=== PATIENT | male | born 1980 | race Hispanic/Latino ===

== ENCOUNTER 2017-08-23 12:49 | Emergency (ER) | payer SELFPAY ==
[2017-08-23] MEDS ORDERED: MECLIZINE HCL 25 MG TABLET ONE (13:31)
[2017-08-23] MEDS ORDERED: HYOSCYAMINE SULFATE 0.125 MG TAB.SUBL SL ONE (13:32)
[2017-08-23] MEDS ORDERED: ONDANSETRON ODT 4 MG TAB ONE (13:32)
== END 2017-08-23 14:50 | disposition home or self-care (01) ==
LOC: EDH 12:49
DX: R19.7 Diarrhea, unspecified (principal); R11.2 Nausea with vomiting, unspecified; R42 Dizziness and giddiness; Z72.0 Tobacco use; Z91.018 Allergy to other foods

== ENCOUNTER 2017-12-20 02:38 | Emergency (ER) | payer SELFPAY ==
[2017-12-20] MEDS ORDERED: IBUPROFEN 200 MG TAB ONE (02:47)
[2017-12-20] MEDS ORDERED: IBUPROFEN 400 MG TABLET ONE (02:47)
== END 2017-12-20 03:19 | disposition home or self-care (01) ==
LOC: EDH 02:38
DX: S93.402A Sprain of unspecified ligament of left ankle, initial encounter (principal); Z91.018 Allergy to other foods; Z72.0 Tobacco use; X58.XXXA Exposure to other specified factors, initial encounter; Y93.02 Activity, running; Y92.89 Other specified places as the place of occurrence of the external cause; Y99.8 Other external cause status
CPT/HCPCS: 73610

== ENCOUNTER 2017-12-20 17:00 | Emergency (ER) | payer SELFPAY ==
[2017-12-20 17:50] LABS: BASOPHILS % (AUTO) 0.5 % (0.0-5.0); EOSINOPHILS % (AUTO) 0.5 % (0.0-8.0); HEMATOCRIT 42.4 % (42-54); LYMPHOCYTES % (AUTO) 14.6 % (21.0-51.0); MEAN CORPUSCULAR HEMOGLOBIN 30.1 pg (27.0-33.0); MEAN CORPUSCULAR HGB CONC 34.2 g/dL (32.0-36.0); MONOCYTES % (AUTO) 7.1 % (3.0-13.0); NEUTROPHILS % (AUTO) 77.3 % (40.0-77.0); PLATELET COUNT (AUTO) 258 K/uL (130-400); RED BLOOD CELL COUNT(AUTO) 4.82 MIL/uL (4.50-6.20); RED CELL DISTRIBUTION WIDTH 13.3 % (11.0-15.5)
[2017-12-20 17:59] LABS: CREATININE 0.9 mg/dL (0.5-1.5); POTASSIUM 3.8 mmol/L (3.5-5.1)
[2017-12-20 18:01] LABS: INR 0.92 (0.85-1.15); PARTIAL THROMBOPLASTIN TIME 25.7 SEC (26.3-35.5); PROTHROMBIN TIME 9.7 SEC (9.6-11.6)
[2017-12-20 18:05] LABS: AMPHET/METH SCREEN,URINE NEGATIVE (NEGATIVE); BARBITURATE SCREEN, URINE NEGATIVE (NEGATIVE); BENZODIAZEPINES SCREEN,URINE NEGATIVE (NEGATIVE); CANNABINOID SCREEN,URINE NEGATIVE (NEGATIVE); COCAINE SCREEN,URINE POSITIVE (NEGATIVE); OPIATE SCREEN,URINE NEGATIVE (NEGATIVE); PHENCYCLIDINE SCREEN,URINE NEGATIVE (NEGATIVE)
[2017-12-20 18:14] LABS: ALBUMIN 3.9 g/dL (3.5-5.0); BILIRUBIN,TOTAL 1.3 mg/dL (0.2-1.0); CREATINE KINASE MB 2.3 ng/mL (0.5-3.6); TOTAL PROTEIN, SERUM 7.6 g/dL (6.0-8.3)
[2017-12-20] MEDS ORDERED: PANTOPRAZOLE SODIUM 40 MG TABLET.DR PO ONE (19:22)
== END 2017-12-20 19:29 | disposition home or self-care (01) ==
LOC: EDH 17:00
DX: K92.0 Hematemesis (principal); I10 Essential (primary) hypertension; K74.69 Other cirrhosis of liver; Z72.0 Tobacco use; Z91.018 Allergy to other foods
CPT/HCPCS: 36415; 80053; 80305; 82270; 82550; 82553; 84484; 85025; 85610; 85730; 93005

== ENCOUNTER 2018-11-28 15:37 | Emergency (ER) | payer OTHER ==
[2018-11-28 16:17] LABS: BASOPHILS % (AUTO) 0.4 % (0.0-5.0); EOSINOPHILS % (AUTO) 0.7 % (0.0-8.0); HEMATOCRIT 43.3 % (42-54); LYMPHOCYTES % (AUTO) 11.2 % (21.0-51.0); MEAN CORPUSCULAR HEMOGLOBIN 30.7 pg (27.0-33.0); MEAN CORPUSCULAR HGB CONC 34.5 g/dL (32.0-36.0); MONOCYTES % (AUTO) 6.1 % (3.0-13.0); NEUTROPHILS % (AUTO) 81.6 % (40.0-77.0); PLATELET COUNT (AUTO) 245 K/uL (130-400); RED BLOOD CELL COUNT(AUTO) 4.86 MIL/uL (4.50-6.20); RED CELL DISTRIBUTION WIDTH 14.3 % (11.0-15.5)
[2018-11-28 16:27] LABS: CREATININE 0.9 mg/dL (0.5-1.5); POTASSIUM 3.9 mmol/L (3.5-5.1)
[2018-11-28 16:30] LABS: INR 0.92 (0.85-1.15); PROTHROMBIN TIME 9.7 SEC (9.6-11.6)
[2018-11-28 16:32] LABS: ALBUMIN 4.1 g/dL (3.5-5.0); BILIRUBIN,TOTAL 0.8 mg/dL (0.2-1.0); TOTAL PROTEIN, SERUM 7.9 g/dL (6.0-8.3)
== END 2018-11-28 16:44 ==
LOC: EDH 15:37
DX: R42 Dizziness and giddiness (principal); R11.2 Nausea with vomiting, unspecified; F41.9 Anxiety disorder, unspecified; K74.60 Unspecified cirrhosis of liver; Z91.018 Allergy to other foods
CPT/HCPCS: 36415; 71045; 80053; 84484; 85025; 85610; 85730; 93005

== ENCOUNTER 2019-04-01 15:55 | Emergency (ER) | payer OTHER ==
[2019-04-01] MEDS ORDERED: NA BORATE/BORIC AC/H2O/NACL 120 ML OPHTH IRRIG SOLN ONE (16:27)
[2019-04-01] MEDS ORDERED: TETRACAINE HCL 0.5% 4 ML OPHTH SOLN ONE (16:27)
[2019-04-01] MEDS ORDERED: FLUORESCEIN SODIUM 1 STRIP STRIP ONE (16:27)
[2019-04-01] MEDS ORDERED: TETANUS/DIPHTHERIA TOXOID [ADULT] 0.5 ML VIAL IM ONE (16:28)
[2019-04-01] MEDS ORDERED: SODIUM CHLORIDE 0.9% 1000ML 1,000 ML IV ONE (17:53)
[2019-04-01] MEDS ORDERED: THIAMINE HCL 100 MG/ML 2ML VIAL ONE (17:54)
[2019-04-01 17:57] LABS: BASOPHILS % (AUTO) 0.9 % (0.0-5.0); EOSINOPHILS % (AUTO) 1.3 % (0.0-8.0); HEMATOCRIT 45.2 % (42-54); LYMPHOCYTES % (AUTO) 33.9 % (21.0-51.0); MEAN CORPUSCULAR HEMOGLOBIN 31.1 pg (27.0-33.0); MEAN CORPUSCULAR HGB CONC 35.2 g/dL (32.0-36.0); MEAN CORPUSCULAR VOLUME 88.4 fL (79-99); MONOCYTES % (AUTO) 9.1 % (3.0-13.0); NEUTROPHILS % (AUTO) 54.8 % (40.0-77.0); NUCLEATED RED BLOOD CELLS 0.1 % (0.0-0.19); PLATELET COUNT (AUTO) 319 K/uL (130-400); RED BLOOD CELL COUNT(AUTO) 5.11 MIL/uL (4.50-6.20); RED CELL DISTRIBUTION WIDTH 14.5 % (11.0-15.5); WHITE BLOOD COUNT (AUTO) 6.6 K/uL (4.8-10.8)
[2019-04-01 17:58] LABS: APPEARANCE,URINE Clear (CLEAR); BILIRUBIN,URINE Negative (NEGATIVE); COLOR,URINE Yellow (YELLOW); GLUCOSE, URINE (UA) Negative (NEGATIVE); KETONES,URINE Negative (NEGATIVE); LEUKOCYTE ESTERASE ,URINE Negative (NEGATIVE); NITRATE,URINE Negative (NEGATIVE); OCCULT BLOOD,URINE Negative (NEGATIVE); PH,URINE 5.5 (5.0-8.0); PROTEIN,URINE Negative (NEGATIVE); UROBILINOGEN,URINE 0.2 mg/dL (0.2-1.0)
[2019-04-01 18:05] LABS: AMPHET/METH SCREEN,URINE NEGATIVE (NEGATIVE); BARBITURATE SCREEN, URINE NEGATIVE (NEGATIVE); BENZODIAZEPINES SCREEN,URINE NEGATIVE (NEGATIVE); CANNABINOID SCREEN,URINE NEGATIVE (NEGATIVE); COCAINE SCREEN,URINE POSITIVE (NEGATIVE); OPIATE SCREEN,URINE NEGATIVE (NEGATIVE); PHENCYCLIDINE SCREEN,URINE NEGATIVE (NEGATIVE)
[2019-04-01 18:12] LABS: INR 0.87 (0.85-1.15); PROTHROMBIN TIME 9.2 SEC (9.6-11.6)
[2019-04-01 18:19] LABS: CREATININE 0.9 mg/dL (0.5-1.5); POTASSIUM 4.4 mmol/L (3.5-5.1)
[2019-04-01 18:26] LABS: BILIRUBIN,TOTAL 0.5 mg/dL (0.2-1.0); TOTAL PROTEIN, SERUM 8.3 g/dL (6.0-8.3)
== END 2019-04-01 19:18 | disposition left against medical advice (07) ==
LOC: EDH 15:55
DX: S02.2XXA Fracture of nasal bones, initial encounter for closed fracture (principal); T15.91XA Foreign body on external eye, part unspecified, right eye, initial encounter; F10.129 Alcohol abuse with intoxication, unspecified; F41.9 Anxiety disorder, unspecified; F31.9 Bipolar disorder, unspecified; K74.60 Unspecified cirrhosis of liver; Z88.6 Allergy status to analgesic agent; W22.8XXA Striking against or struck by other objects, initial encounter; Y93.89 Activity, other specified; Y92.89 Other specified places as the place of occurrence of the external cause; Y99.8 Other external cause status; Y90.9 Presence of alcohol in blood, level not specified
CPT/HCPCS: 36415; 70450; 70486; 80053; 80305; 81003; 82140; 85025; 85610; 85730; 90471; 90714; 96372; 99285; G0480; J3411; J7030

== ENCOUNTER 2019-08-03 02:15 | Emergency (ER) | payer OTHER ==
[2019-08-03] MEDS ORDERED: ONDANSETRON HCL 4 MG/2 ML VIAL ONE (02:50)
[2019-08-03] MEDS ORDERED: FAMOTIDINE/PF 20 MG/2 ML VIAL IV ONE (02:50)
[2019-08-03] MEDS ORDERED: METOCLOPRAMIDE 10 MG/2 ML VIAL ONE (02:50)
[2019-08-03 02:58] LABS: BASOPHILS % (AUTO) 0.5 % (0.0-5.0); EOSINOPHILS % (AUTO) 1.8 % (0.0-8.0); HEMATOCRIT 40.2 % (42-54); LYMPHOCYTES % (AUTO) 22.4 % (21.0-51.0); MEAN CORPUSCULAR HEMOGLOBIN 29.1 pg (27.0-33.0); MEAN CORPUSCULAR HGB CONC 34.6 g/dL (32.0-36.0); MEAN CORPUSCULAR VOLUME 84.3 fL (79-99); MONOCYTES % (AUTO) 8.5 % (3.0-13.0); NEUTROPHILS % (AUTO) 65.2 % (40.0-77.0); PLATELET COUNT (AUTO) 399 K/uL (130-400); RED BLOOD CELL COUNT(AUTO) 4.77 MIL/uL (4.50-6.20); RED CELL DISTRIBUTION WIDTH 12.3 % (11.0-15.5); WHITE BLOOD COUNT (AUTO) 8.8 K/uL (4.8-10.8)
[2019-08-03 02:59] LABS: APPEARANCE,URINE Clear (CLEAR); BILIRUBIN,URINE Negative (NEGATIVE); COLOR,URINE Yellow (YELLOW); GLUCOSE, URINE (UA) Negative (NEGATIVE); KETONES,URINE Negative (NEGATIVE); LEUKOCYTE ESTERASE ,URINE Negative (NEGATIVE); NITRATE,URINE Negative (NEGATIVE); OCCULT BLOOD,URINE Negative (NEGATIVE); PROTEIN,URINE Negative (NEGATIVE); UROBILINOGEN,URINE 0.2 mg/dL (0.2-1.0)
[2019-08-03 03:08] LABS: CREATININE 0.9 mg/dL (0.5-1.5); POTASSIUM 3.5 mmol/L (3.5-5.1)
[2019-08-03 03:12] LABS: ALBUMIN 3.5 g/dL (3.5-5.0); BILIRUBIN,TOTAL 0.2 mg/dL (0.2-1.0); TOTAL PROTEIN, SERUM 8.3 g/dL (6.0-8.3)
[2019-08-03 03:25] LABS: B-TYPE NATRIURETIC PEPTIDE 22 pg/mL (0-100)
[2019-08-03 03:31] LABS: INR 0.9 (0.85-1.15); PARTIAL THROMBOPLASTIN TIME 27.4 SEC (26.3-35.5); PROTHROMBIN TIME 9.5 SEC (9.6-11.6)
[2019-08-03 03:35] LABS: AMPHET/METH SCREEN,URINE NEGATIVE (NEGATIVE); BARBITURATE SCREEN, URINE NEGATIVE (NEGATIVE); BENZODIAZEPINES SCREEN,URINE NEGATIVE (NEGATIVE); CANNABINOID SCREEN,URINE NEGATIVE (NEGATIVE); COCAINE SCREEN,URINE NEGATIVE (NEGATIVE); OPIATE SCREEN,URINE NEGATIVE (NEGATIVE); PHENCYCLIDINE SCREEN,URINE NEGATIVE (NEGATIVE)
== END 2019-08-03 03:45 | disposition left against medical advice (07) ==
LOC: EDH 02:15
DX: R11.2 Nausea with vomiting, unspecified (principal); R19.7 Diarrhea, unspecified; F10.10 Alcohol abuse, uncomplicated; F41.9 Anxiety disorder, unspecified; F31.9 Bipolar disorder, unspecified; R79.1 Abnormal coagulation profile; Z88.8 Allergy status to other drugs, medicaments and biological substances; Z72.0 Tobacco use
CPT/HCPCS: 36415; 71046; 80053; 80305; 81003; 82550; 83690; 83880; 84484; 85025; 85610; 85730; 93005; 96374; 96375; 99285; G0480; J2405; J2765; J3490

== ENCOUNTER 2021-11-12 20:49 | Emergency (ER) | payer OTHER ==
[~2021-11-12] VITALS: Ht 165.1 cm; Wt 90.7 kg
[2021-11-12 21:44] LABS: BASOPHILS % (AUTO) 0.6 % (0.0-5.0); EOSINOPHILS % (AUTO) 1.1 % (0.0-8.0); HEMATOCRIT 39.8 % (42-54); MEAN CORPUSCULAR HEMOGLOBIN 28.7 pg (27.0-33.0); MEAN CORPUSCULAR HGB CONC 33.9 g/dL (32.0-36.0); MEAN CORPUSCULAR VOLUME 84.5 fL (79-99); MONOCYTES % (AUTO) 8.8 % (3.0-13.0); PLATELET COUNT (AUTO) 287 K/uL (130-400); RED BLOOD CELL COUNT(AUTO) 4.71 MIL/uL (4.50-6.20); RED CELL DISTRIBUTION WIDTH 14.6 % (11.0-15.5); WHITE BLOOD COUNT (AUTO) 6.2 K/uL (4.8-10.8)
[2021-11-12 21:45] LABS: APPEARANCE,URINE Clear (CLEAR); BILIRUBIN,URINE Negative (NEGATIVE); COLOR,URINE Yellow (YELLOW); GLUCOSE, URINE (UA) Negative (NEGATIVE); KETONES,URINE Negative (NEGATIVE); LEUKOCYTE ESTERASE ,URINE Negative (NEGATIVE); NITRATE,URINE Negative (NEGATIVE); OCCULT BLOOD,URINE Negative (NEGATIVE); PROTEIN,URINE Negative (NEGATIVE); UROBILINOGEN,URINE 0.2 mg/dL (0.2-1.0)
[2021-11-12 21:53] LABS: AMPHET/METH SCREEN,URINE NEGATIVE (NEGATIVE); BARBITURATE SCREEN, URINE NEGATIVE (NEGATIVE); BENZODIAZEPINES SCREEN,URINE NEGATIVE (NEGATIVE); CANNABINOID SCREEN,URINE NEGATIVE (NEGATIVE); COCAINE SCREEN,URINE POSITIVE (NEGATIVE); OPIATE SCREEN,URINE NEGATIVE (NEGATIVE); PHENCYCLIDINE SCREEN,URINE NEGATIVE (NEGATIVE)
[2021-11-12 21:54] LABS: CREATININE 0.9 mg/dL (0.5-1.5); POTASSIUM 3.4 mmol/L (3.5-5.1)
[2021-11-12 21:55] LABS: INR 0.94 (0.85-1.15); PROTHROMBIN TIME 10.3 SEC (9.6-11.6)
[2021-11-12 21:56] LABS: PARTIAL THROMBOPLASTIN TIME 26.3 SEC (26.3-35.5)
[2021-11-12 22:05] LABS: B-TYPE NATRIURETIC PEPTIDE < 5 pg/mL (0-100)
[2021-11-12 22:07] LABS: ALBUMIN 3.6 g/dL (3.5-5.0); BILIRUBIN,TOTAL 0.5 mg/dL (0.2-1.0); MAGNESIUM 1.9 mg/dL (1.80-2.40); TOTAL PROTEIN, SERUM 7.1 g/dL (6.0-8.3)
[2021-11-12] MEDS ORDERED: POTASSIUM BICARB/CIT AC 25 MEQ TABLET.EFF PO ONE (22:30)
[2021-11-12] MEDS ORDERED: 0.9%NACL 1000ML 1,000 ML IV ONE ×2 (22:30)
[2021-11-13] VITALS: BP 120/56
[2021-11-13] MEDS ORDERED: FAMO40TA75 PO (02:25)
[2021-11-13] MEDS ORDERED: ONDA4TAB10 PO (02:27)
== END 2021-11-13 02:41 | disposition home or self-care (01) ==
LOC: EDH 20:49
DX: M62.82 Rhabdomyolysis (principal); R07.89 Other chest pain; E86.0 Dehydration; F10.10 Alcohol abuse, uncomplicated; R55 Syncope and collapse; F14.10 Cocaine abuse, uncomplicated; E78.00 Pure hypercholesterolemia, unspecified; I10 Essential (primary) hypertension
CPT/HCPCS: 36415 ×2; 70450; 71045; 80053; 80305; 81003; 82550 ×2; 83690; 83735; 83880; 84484; 85025; 85610; 85730; 93005; 96360; 99285; J7030 ×2

== ENCOUNTER 2022-01-13 12:22 | Observation (INO) | payer BC, OTHER ==
[~2022-01-13] VITALS: Ht 165.1 cm; Wt 90.7 kg
[~2022-01-13 12:22] MED LIST: PANT40TA55 PO
[2022-01-13 12:46] LABS: BASOPHILS % (AUTO) 0.5 % (0.0-5.0); EOSINOPHILS % (AUTO) 0.8 % (0.0-8.0); HEMATOCRIT 44.8 % (42-54); LYMPHOCYTES % (AUTO) 26.8 % (21.0-51.0); MEAN CORPUSCULAR HEMOGLOBIN 28.8 pg (27.0-33.0); MEAN CORPUSCULAR HGB CONC 34.4 g/dL (32.0-36.0); MEAN CORPUSCULAR VOLUME 83.7 fL (79-99); MONOCYTES % (AUTO) 6.7 % (3.0-13.0); NEUTROPHILS % (AUTO) 64.1 % (40.0-77.0); PLATELET COUNT (AUTO) 375 K/uL (130-400); RED BLOOD CELL COUNT(AUTO) 5.35 MIL/uL (4.50-6.20); RED CELL DISTRIBUTION WIDTH 13.6 % (11.0-15.5); WHITE BLOOD COUNT (AUTO) 6.3 K/uL (4.8-10.8)
[2022-01-13 12:58] LABS: INR 0.93 (0.85-1.15); PROTHROMBIN TIME 9.9 SEC (9.6-11.6)
[2022-01-13 12:59] LABS: PARTIAL THROMBOPLASTIN TIME 23.2 SEC (26.3-35.5)
[2022-01-13 13:02] LABS: ALBUMIN 3.7 g/dL (3.5-5.0); TOTAL PROTEIN, SERUM 7.9 g/dL (6.0-8.3)
[2022-01-13 13:26] LABS: ALCOHOL, BLOOD 72 mg/dL (0-10)
[2022-01-13 13:30] LABS: AMMONIA < 10 umol/L (11-32)
[2022-01-13] MEDS ORDERED: CHLORDIAZEPOXIDE HCL 25 MG CAP PO ONE (15:30)
[2022-01-13] MEDS ORDERED: 0.9%NACL 1000ML 1,000 ML IV SCH (15:30)
[2022-01-13] MEDS ORDERED: PANTOPRAZOLE 40 MG/VIAL IVP ONE (15:30)
[2022-01-13] MEDS ORDERED: PRAV20TA4 PO (15:44)
[2022-01-13] MEDS ORDERED: TAMS-1 PO (15:48)
[2022-01-13] MEDS ORDERED: PREG50CA63 PO (15:48)
[2022-01-13] MEDS ORDERED: OMEP40CA21 PO (15:48)
[2022-01-13] MEDS ORDERED: DAPA10TA PO (15:48)
[2022-01-13 18:21] VITALS: BP_SYST 150; BP_SYST 94; BP_DIAS 113; BP_DIAS 62
[2022-01-13] MEDS ORDERED: THIAMINE HCL 100 MG TABLET PO ONE (18:30)
[2022-01-13] MEDS ORDERED: ONDANSETRON 4MG INJ IVP PRN (18:30)
[2022-01-13] MEDS ORDERED: LORAZEPAM 2 MG/ML 1 ML VIAL IM PRN (18:30)
[2022-01-13] MEDS ORDERED: CHLORDIAZEPOXIDE HCL 25 MG CAP PO PRN (18:30)
[2022-01-13] MEDS ORDERED: FOLIC ACID 1 MG TABLET PO ONE (18:30)
[2022-01-13] MEDS ORDERED: ACETAMINOPHEN 325 MG TAB PO PRN (18:30)
[2022-01-13 19:00] VITALS: BP 153/99
[2022-01-13] MEDS: PANTOPRAZOLE 40 MG/VIAL IVP SCH (20:33)
[2022-01-14] VITALS: BP 147/86
[2022-01-14] MEDS ORDERED: CLONIDINE HCL 0.1 MG TABLET PO ONE (03:30)
[2022-01-14 04:00] VITALS: BP 134/92
[2022-01-14 05:11] LABS: BASOPHILS % (AUTO) 0.6 % (0.0-5.0); EOSINOPHILS % (AUTO) 2.1 % (0.0-8.0); HEMATOCRIT 39.9 % (42-54); LYMPHOCYTES % (AUTO) 26.2 % (21.0-51.0); MEAN CORPUSCULAR HEMOGLOBIN 29.1 pg (27.0-33.0); MEAN CORPUSCULAR HGB CONC 34.3 g/dL (32.0-36.0); MEAN CORPUSCULAR VOLUME 84.7 fL (79-99); MONOCYTES % (AUTO) 7.4 % (3.0-13.0); PLATELET COUNT (AUTO) 286 K/uL (130-400); RED BLOOD CELL COUNT(AUTO) 4.71 MIL/uL (4.50-6.20); RED CELL DISTRIBUTION WIDTH 13.3 % (11.0-15.5); WHITE BLOOD COUNT (AUTO) 6.8 K/uL (4.8-10.8)
[2022-01-14 05:42] LABS: ALBUMIN 3.3 g/dL (3.5-5.0); CREATININE 0.9 mg/dL (0.5-1.5); MAGNESIUM 1.8 mg/dL (1.80-2.40); POTASSIUM 3.5 mmol/L (3.5-5.1)
[2022-01-14] MEDS ORDERED: LIDOCAINE HCL-MPF 1% 2ML VIAL IV PRN (06:30)
[2022-01-14] MEDS ORDERED: MAGNESIUM 2GM PREMIX 50ML 50 ML IV PRN (06:30)
[2022-01-14] MEDS: KCL 20 MEQ ERTAB PO PRN ×2 (06:46→13:52)
[2022-01-14] MEDS: PANTOPRAZOLE 40 MG/VIAL IVP SCH (07:59)
[2022-01-14 08:00] VITALS: BP 122/91
[2022-01-14] MEDS ORDERED: NON-FORMULARY MEDICATION 1 EACH (Omeprazole 40 MG) PO SCH (08:00)
[2022-01-14] MEDS ORDERED: M.V.I. IV [ADULT] 10 ML, FOLIC ACID 1 MG, THIAMINE HCL 100 MG in 0.9%NACL 1000ML 1,000 ML IV SCH (09:00)
[2022-01-14] MEDS ORDERED: **HM**(Dapagliflozin Propanediol (Farxiga) 10 MG PO SCH (09:00)
[2022-01-14] MEDS ORDERED: THIAMINE HCL 100 MG TABLET PO SCH (09:00)
[2022-01-14] MEDS ORDERED: PREGABALIN 25 MG CAP PO SCH (09:00)
[2022-01-14] MEDS ORDERED: TAMSULOSIN HCL 0.4 MG CAP.ER.24H PO SCH (09:00)
[2022-01-14 10:49] LABS: HEMATOCRIT 43.2 % (42-54)
[2022-01-14 12:00] VITALS: BP 134/86
[2022-01-14] MEDS ORDERED: ATORVASTATIN 10 MG TABLET PO SCH (17:00)
== END 2022-01-14 14:25 | disposition home or self-care (01) ==
LOC: EDH 12:22 → EDHIP 15:12 → 3CH 16:38
PROVIDERS: ADMIT Hospitalist; ATTEND Hospitalist
DX: K92.2 Gastrointestinal hemorrhage, unspecified (principal); K52.9 Noninfective gastroenteritis and colitis, unspecified; F10.10 Alcohol abuse, uncomplicated; R74.01 Elevation of levels of liver transaminase levels; E44.1 Mild protein-calorie malnutrition; I10 Essential (primary) hypertension; K21.9 Gastro-esophageal reflux disease without esophagitis; E78.5 Hyperlipidemia, unspecified; F14.90 Cocaine use, unspecified, uncomplicated; K74.60 Unspecified cirrhosis of liver; E66.9 Obesity, unspecified; Z68.33 Body mass index [BMI] 33.0-33.9, adult; E78.00 Pure hypercholesterolemia, unspecified; Z79.899 Other long term (current) drug therapy
CPT/HCPCS: 96375; 99284; 80053 ×2; 82140; 85025 ×2; 85610; 85730; 36415 ×2; 96376; 96365; 83735; 85014; 85018; G0378 ×23; J7030 ×2; C9113 ×3; J3475; J3411; J3490

== ENCOUNTER 2022-08-31 10:33 | Emergency (ER) | payer BC, OTHER ==
[~2022-08-31] VITALS: Ht 165.1 cm; Wt 88.5 kg
[~2022-08-31 10:33] MED LIST changes: +DAPA10TA PO; +PRAV20TA4 PO; +PREG50CA63 PO; +TAMS-1 PO
[2022-08-31 10:35] VITALS: BP 145/71
[2022-08-31] MEDS ORDERED: 0.9%NACL 1000ML 1,000 ML IV ONE (11:30)
[2022-08-31 11:34] LABS: BASOPHILS % (AUTO) 0.4 % (0.0-5.0); EOSINOPHILS % (AUTO) 0.9 % (0.0-8.0); HEMATOCRIT 39.4 % (42-54); LYMPHOCYTES % (AUTO) 14.3 % (21.0-51.0); MEAN CORPUSCULAR HEMOGLOBIN 27.9 pg (27.0-33.0); MEAN CORPUSCULAR HGB CONC 34.5 g/dL (32.0-36.0); MEAN CORPUSCULAR VOLUME 80.7 fL (79-99); NEUTROPHILS % (AUTO) 75.7 % (40.0-77.0); PLATELET COUNT (AUTO) 222 K/uL (130-400); RED BLOOD CELL COUNT(AUTO) 4.88 MIL/uL (4.50-6.20); RED CELL DISTRIBUTION WIDTH 13.7 % (11.0-15.5)
[2022-08-31 11:47] LABS: POTASSIUM 3.8 mmol/L (3.5-5.1)
[2022-08-31 11:52] LABS: ALBUMIN 3.9 g/dL (3.5-5.0); TOTAL PROTEIN, SERUM 7.5 g/dL (6.0-8.3)
[2022-08-31] MEDS ORDERED: HYDR25CA PO (14:06)
[2022-08-31] MEDS ORDERED: METH4TAB3 PO (14:06)
[2022-08-31 14:24] LABS: AMPHET/METH SCREEN,URINE NEGATIVE (NEGATIVE); BARBITURATE SCREEN, URINE NEGATIVE (NEGATIVE); BENZODIAZEPINES SCREEN,URINE NEGATIVE (NEGATIVE); CANNABINOID SCREEN,URINE NEGATIVE (NEGATIVE); COCAINE SCREEN,URINE POSITIVE (NEGATIVE); OPIATE SCREEN,URINE NEGATIVE (NEGATIVE); PHENCYCLIDINE SCREEN,URINE NEGATIVE (NEGATIVE)
== END 2022-08-31 14:43 | disposition home or self-care (01) ==
LOC: EDH 10:33
DX: F14.10 Cocaine abuse, uncomplicated (principal); F10.10 Alcohol abuse, uncomplicated; B34.9 Viral infection, unspecified; M94.0 Chondrocostal junction syndrome [Tietze]; E78.00 Pure hypercholesterolemia, unspecified; Z79.899 Other long term (current) drug therapy; Z79.84 Long term (current) use of oral hypoglycemic drugs; Y90.9 Presence of alcohol in blood, level not specified
CPT/HCPCS: 99285; 96360; 71045; 96361; 84484; 80053; 80305; 85025; 36415; 93005; J7030

== ENCOUNTER 2022-09-07 03:14 | Emergency (ER) | payer OTHER ==
[~2022-09-07] VITALS: Ht 165.1 cm; Wt 87.1 kg
[~2022-09-07 03:14] MED LIST changes: +HYDR25CA PO; +METH4TAB3 PO
[2022-09-07 07:33] VITALS: BP 135/78
== END 2022-09-07 08:21 | disposition home or self-care (01) ==
LOC: EDH 03:14
DX: S00.11XA Contusion of right eyelid and periocular area, initial encounter (principal); H33.21 Serous retinal detachment, right eye; I10 Essential (primary) hypertension; E78.00 Pure hypercholesterolemia, unspecified; E03.9 Hypothyroidism, unspecified; Z79.899 Other long term (current) drug therapy; W50.0XXA Accidental hit or strike by another person, initial encounter; Y93.89 Activity, other specified; Y92.89 Other specified places as the place of occurrence of the external cause; Y99.8 Other external cause status
CPT/HCPCS: 70450

== ENCOUNTER 2022-10-12 22:47 | Emergency (ER) | payer BC, OTHER ==
[~2022-10-12] VITALS: Ht 165.1 cm; Wt 89.4 kg
[2022-10-12 23:30] LABS: BASOPHILS % (AUTO) 0.9 % (0.0-5.0); EOSINOPHILS % (AUTO) 1.1 % (0.0-8.0); HEMATOCRIT 37.8 % (42-54); LYMPHOCYTES % (AUTO) 30.5 % (21.0-51.0); MEAN CORPUSCULAR HEMOGLOBIN 28.5 pg (27.0-33.0); MEAN CORPUSCULAR HGB CONC 34.1 g/dL (32.0-36.0); MEAN CORPUSCULAR VOLUME 83.6 fL (79-99); MONOCYTES % (AUTO) 11.3 % (3.0-13.0); NEUTROPHILS % (AUTO) 55.5 % (40.0-77.0); PLATELET COUNT (AUTO) 320 K/uL (130-400); RED BLOOD CELL COUNT(AUTO) 4.52 MIL/uL (4.50-6.20); RED CELL DISTRIBUTION WIDTH 14.6 % (11.0-15.5)
[2022-10-12 23:31] LABS: APPEARANCE,URINE CLEAR (CLEAR); BILIRUBIN,URINE NEGATIVE (NEGATIVE); GLUCOSE, URINE (UA) NEGATIVE (NEGATIVE); KETONES,URINE NEGATIVE (NEGATIVE); LEUKOCYTE ESTERASE ,URINE NEGATIVE Leu/uL (NEGATIVE); NITRATE,URINE NEGATIVE (NEGATIVE); OCCULT BLOOD,URINE NEGATIVE (NEGATIVE); PH,URINE 6.5 (5.0-8.0); PROTEIN,URINE NEGATIVE (NEGATIVE); UROBILINOGEN,URINE 0.2 mg/dL (0.2-1.0)
[2022-10-12 23:38] LABS: COLOR,URINE Light-Yellow (YELLOW)
[2022-10-12 23:57] LABS: POTASSIUM 3.9 mmol/L (3.5-5.1)
[2022-10-13 00:06] LABS: ALBUMIN 3.7 g/dL (3.5-5.0); TOTAL PROTEIN, SERUM 7.4 g/dL (6.0-8.3)
[2022-10-13] MEDS ORDERED: 0.9%NACL 1000ML 1,000 ML IV ONE ×2 (00:30→05:30)
[2022-10-13] MEDS ORDERED: ONDANSETRON 4MG INJ IVP ONE (00:30)
[2022-10-13] MEDS ORDERED: MORPHINE 4 MG SYG IVP ONE (00:30)
[2022-10-13] MEDS ORDERED: LACT10SO9 PO (04:40)
[2022-10-13] MEDS ORDERED: LACTULOSE 20 GM/30 ML UDCUP PO ONE (05:30)
[2022-10-13 06:10] VITALS: BP 127/64
== END 2022-10-13 06:13 | disposition home or self-care (01) ==
LOC: EDH 22:47
DX: K59.00 Constipation, unspecified (principal); R10.84 Generalized abdominal pain; I10 Essential (primary) hypertension; E78.00 Pure hypercholesterolemia, unspecified; E03.9 Hypothyroidism, unspecified; F31.9 Bipolar disorder, unspecified; Z79.899 Other long term (current) drug therapy
CPT/HCPCS: 99284 ×2; 84484; 80053; 83690; 85025; 81003; 36415 ×2; 93005 ×2; 74176; 96360; 96361; 96375; 82270; 82550; 80305; 96374; J7030 ×3; J2405; J2270

== ENCOUNTER 2023-02-16 13:27 | Emergency (ER) | payer BC ==
[~2023-02-16] VITALS: Ht 165.1 cm; Wt 93.9 kg
[~2023-02-16 13:27] MED LIST changes: +LACT10SO9 PO
[2023-02-16] MEDS ORDERED: LACTATED RINGERS 1000ML 1,000 ML IV ONE ×2 (14:30→16:30)
[2023-02-16 15:08] LABS: BASOPHILS # (AUTO) 0.05 K/uL (0.00-0.20); BASOPHILS % (AUTO) 0.9 % (0.0-5.0); EOSINOPHILS # (AUTO) 0.06 K/uL (0.00-0.70); EOSINOPHILS % (AUTO) 1.1 % (0.0-8.0); HEMATOCRIT 40.2 % (42-54); IMMATURE GRANULOCYTE ABSOLUTE 0.02 K/uL (0-1); LYMPHOCYTES # (AUTO) 1.5 K/uL (1.0-4.8); LYMPHOCYTES % (AUTO) 27.2 % (21.0-51.0); MEAN CORPUSCULAR HGB CONC 34.3 g/dL (32.0-36.0); MEAN CORPUSCULAR VOLUME 81.5 fL (79-99); MONOCYTES # (AUTO) 0.3 K/uL (0.1-1.0); MONOCYTES % (AUTO) 5.9 % (3.0-13.0); NEUTROPHILS # (AUTO) 3.6 K/uL (1.8-7.7); NEUTROPHILS % (AUTO) 64.5 % (40.0-77.0); PLATELET COUNT (AUTO) 296 K/uL (130-400); RED BLOOD CELL COUNT(AUTO) 4.93 MIL/uL (4.50-6.20); RED CELL DISTRIBUTION WIDTH 12.9 % (11.0-15.5); WHITE BLOOD COUNT (AUTO) 5.6 K/uL (4.8-10.8)
[2023-02-16 15:24] LABS: ALBUMIN 3.4 g/dL (3.5-5.0); BILIRUBIN,TOTAL 0.3 mg/dL (0.2-1.0)
[2023-02-16 15:48] LABS: APPEARANCE,URINE CLEAR (CLEAR); BILIRUBIN,URINE NEGATIVE (NEGATIVE); COLOR,URINE COLORLESS (YELLOW); GLUCOSE, URINE (UA) NEGATIVE (NEGATIVE); KETONES,URINE NEGATIVE (NEGATIVE); LEUKOCYTE ESTERASE ,URINE NEGATIVE Leu/uL (NEGATIVE); NITRATE,URINE NEGATIVE (NEGATIVE); OCCULT BLOOD,URINE NEGATIVE (NEGATIVE); PH,URINE 6.5 (5.0-8.0); PROTEIN,URINE NEGATIVE (NEGATIVE); UROBILINOGEN,URINE 0.2 mg/dL (0.2-1.0)
[2023-02-16 15:49] LABS: ADD UA MICROSCOPIC YES
[2023-02-16 15:50] LABS: WBC,URINE 0-1 /HPF (0-1)
[2023-02-16 16:26] LABS: MAGNESIUM 2.1 mg/dL (1.80-2.40)
[2023-02-16] MEDS ORDERED: LORAZEPAM 2 MG/ML 1 ML VIAL IVP ONE (16:30)
[2023-02-16] MEDS ORDERED: THIAMINE HCL 100 MG/ML 2ML VIAL IM ONE (16:30)
[2023-02-16 16:39] VITALS: BP 119/80; PULSE 88; RESP 16; O2SAT 98
[2023-02-16] MEDS ORDERED: ONDA4TAB10 PO (18:27)
== END 2023-02-16 13:56 | disposition home or self-care (01) ==
LOC: EDH 13:27
DX: R11.10 Vomiting, unspecified (principal); R19.7 Diarrhea, unspecified; E86.9 Volume depletion, unspecified; F19.10 Other psychoactive substance abuse, uncomplicated; E78.00 Pure hypercholesterolemia, unspecified; I10 Essential (primary) hypertension; Z79.52 Long term (current) use of systemic steroids; Z79.84 Long term (current) use of oral hypoglycemic drugs; Z79.899 Other long term (current) drug therapy; X30.XXXA Exposure to excessive natural heat, initial encounter; Y93.89 Activity, other specified; Y92.89 Other specified places as the place of occurrence of the external cause; Y99.8 Other external cause status
CPT/HCPCS: 99284; 96374; 96361; 82270; 82550; 83735; 84484; 80053; 85025; 81001; 36415; 96372; 93005; J7120; J3411; J2060

== ENCOUNTER 2023-03-14 18:17 | Emergency (ER) | payer BC ==
[~2023-03-14] VITALS: Ht 165.1 cm; Wt 93.9 kg
[~2023-03-14 18:17] MED LIST changes: +ONDA4TAB10 PO
[2023-03-14 19:02] LABS: APPEARANCE,URINE CLEAR (CLEAR); BILIRUBIN,URINE NEGATIVE (NEGATIVE); COLOR,URINE COLORLESS (YELLOW); GLUCOSE, URINE (UA) NEGATIVE (NEGATIVE); KETONES,URINE 5 mg/dL (NEGATIVE); LEUKOCYTE ESTERASE ,URINE NEGATIVE Leu/uL (NEGATIVE); NITRATE,URINE NEGATIVE (NEGATIVE); OCCULT BLOOD,URINE NEGATIVE (NEGATIVE); PH,URINE 5.5 (5.0-8.0); PROTEIN,URINE NEGATIVE (NEGATIVE); UROBILINOGEN,URINE 0.2 mg/dL (0.2-1.0)
[2023-03-14 19:07] LABS: AMPHET/METH SCREEN,URINE NEGATIVE (NEGATIVE); BARBITURATE SCREEN, URINE NEGATIVE (NEGATIVE); BENZODIAZEPINES SCREEN,URINE NEGATIVE (NEGATIVE); CANNABINOID SCREEN,URINE NEGATIVE (NEGATIVE); COCAINE SCREEN,URINE POSITIVE (NEGATIVE); OPIATE SCREEN,URINE NEGATIVE (NEGATIVE); PHENCYCLIDINE SCREEN,URINE NEGATIVE (NEGATIVE)
[2023-03-14 19:08] LABS: BASOPHILS # (AUTO) 0.06 K/uL (0.00-0.20); BASOPHILS % (AUTO) 0.5 % (0.0-5.0); EOSINOPHILS # (AUTO) 0.13 K/uL (0.00-0.70); HEMATOCRIT 42.1 % (42-54); IMMATURE GRANULOCYTE ABSOLUTE 0.06 K/uL (0-1); LYMPHOCYTES # (AUTO) 1.7 K/uL (1.0-4.8); LYMPHOCYTES % (AUTO) 13.1 % (21.0-51.0); MEAN CORPUSCULAR HEMOGLOBIN 28.5 pg (27.0-33.0); MEAN CORPUSCULAR HGB CONC 34.2 g/dL (32.0-36.0); MEAN CORPUSCULAR VOLUME 83.2 fL (79-99); MONOCYTES # (AUTO) 0.8 K/uL (0.1-1.0); MONOCYTES % (AUTO) 6.4 % (3.0-13.0); NEUTROPHILS # (AUTO) 9.9 K/uL (1.8-7.7); NEUTROPHILS % (AUTO) 78.5 % (40.0-77.0); PLATELET COUNT (AUTO) 317 K/uL (130-400); RED BLOOD CELL COUNT(AUTO) 5.06 MIL/uL (4.50-6.20); WHITE BLOOD COUNT (AUTO) 12.6 K/uL (4.8-10.8)
[2023-03-14 19:09] LABS: ADD UA MICROSCOPIC YES
[2023-03-14 19:11] LABS: BACTERIA,URINE RARE /HPF (None Seen); RBC,URINE 0-1 /HPF (0-1); WBC,URINE 0-1 /HPF (0-1)
[2023-03-14 19:13] LABS: CARBON DIOXIDE 23 mmol/L (21-32); CHLORIDE 97 mmol/L (101-111); CREATININE 0.9 mg/dL (0.5-1.5); GLOMERULAR FILTR. RATE CALC 111 mL/min (>90); GLUCOSE,RANDOM 115 mg/dL (70-105); POTASSIUM 3.6 mmol/L (3.5-5.1); SODIUM SERUM 135 mmol/L (136-145); UREA NITROGEN, BLOOD 6 mg/dL (7-18)
[2023-03-14 19:17] LABS: ALANINE AMINOTRANSFERASE 74 U/L (12-78); ALBUMIN 3.9 g/dL (3.5-5.0); ALCOHOL, BLOOD 197 mg/dL (0-10); ASPARTATE AMINOTRANSFERASE 59 U/L (10-37); BILIRUBIN,TOTAL 0.6 mg/dL (0.2-1.0)
[2023-03-14 19:20] LABS: ACETAMINOPHEN < 1 mcg/mL (10-29); SALICYLATE < 2.8 mg/dL (2.8-20.0)
[2023-03-14] MEDS ORDERED: M.V.I. IV [ADULT] 10 ML, FOLIC ACID 1 MG, THIAMINE HCL 100 MG in 0.9%NACL 1000ML 1,000 ML IV STA (21:07)
[2023-03-14] MEDS ORDERED: LORAZEPAM 2 MG/ML 1 ML VIAL IVP ONE (21:30)
[2023-03-15 07:00] VITALS: BP 144/78; PULSE 84; RESP 18; O2SAT 99
== END 2023-03-15 09:08 | disposition home or self-care (01) ==
LOC: EDH 18:17
DX: F32.A Depression, unspecified (principal); F10.10 Alcohol abuse, uncomplicated; R45.851 Suicidal ideations; I10 Essential (primary) hypertension; E78.00 Pure hypercholesterolemia, unspecified; Z79.84 Long term (current) use of oral hypoglycemic drugs; Z79.899 Other long term (current) drug therapy; Z98.890 Other specified postprocedural states; Z88.8 Allergy status to other drugs, medicaments and biological substances
CPT/HCPCS: 99284; 96366; 96365; 96375; 80053; 80305; 85025; 36415 ×2; 81001; J7030; J3411; J2060; J3490; G0481

== ENCOUNTER 2023-09-05 21:17 | Emergency (ER) | payer BC, OTHER ==
[~2023-09-05 21:17] MED LIST changes: -PREG50CA63 PO; +PREG50CA64 PO
[2023-09-05 21:54] LABS: BASOPHILS # (AUTO) 0.05 K/uL (0.00-0.20); BASOPHILS % (AUTO) 0.8 % (0.0-5.0); EOSINOPHILS # (AUTO) 0.11 K/uL (0.00-0.70); EOSINOPHILS % (AUTO) 1.8 % (0.0-8.0); HEMATOCRIT 43.2 % (42-54); IMMATURE GRANULOCYTE ABSOLUTE 0.02 K/uL (0-1); LYMPHOCYTES # (AUTO) 1.9 K/uL (1.0-4.8); LYMPHOCYTES % (AUTO) 31.2 % (21.0-51.0); MEAN CORPUSCULAR VOLUME 83.1 fL (79-99); MONOCYTES # (AUTO) 0.5 K/uL (0.1-1.0); MONOCYTES % (AUTO) 7.4 % (3.0-13.0); NEUTROPHILS # (AUTO) 3.5 K/uL (1.8-7.7); NEUTROPHILS % (AUTO) 58.5 % (40.0-77.0); PLATELET COUNT (AUTO) 327 K/uL (130-400); RED CELL DISTRIBUTION WIDTH 13.7 % (11.0-15.5); WHITE BLOOD COUNT (AUTO) 6.1 K/uL (4.8-10.8)
[2023-09-05 22:03] LABS: CARBON DIOXIDE 26 mmol/L (21-32); CHLORIDE 100 mmol/L (101-111); CREATININE 1.1 mg/dL (0.5-1.5); GLOMERULAR FILTR. RATE CALC 87 mL/min (>90); GLUCOSE,RANDOM 131 mg/dL (70-105); POTASSIUM 3.5 mmol/L (3.5-5.1); SODIUM SERUM 139 mmol/L (136-145); UREA NITROGEN, BLOOD 10 mg/dL (7-18)
[2023-09-05 22:09] LABS: ACETAMINOPHEN < 1 mcg/mL (10-29); ALANINE AMINOTRANSFERASE 96 U/L (12-78); ALBUMIN 3.8 g/dL (3.5-5.0); ALCOHOL, BLOOD 294 mg/dL (0-10); ASPARTATE AMINOTRANSFERASE 47 U/L (10-37); BILIRUBIN,TOTAL 0.3 mg/dL (0.2-1.0); CREATINE KINASE, TOTAL 375 U/L (21-232); SALICYLATE < 2.8 mg/dL (2.8-20.0); TOTAL PROTEIN, SERUM 7.7 g/dL (6.0-8.3)
[2023-09-05 22:10] LABS: INR <= 0.93 (0.85-1.15); PROTHROMBIN TIME 10.1 SEC (9.6-11.6)
[2023-09-05 22:11] LABS: PARTIAL THROMBOPLASTIN TIME 27.1 SEC (26.3-35.5)
[2023-09-05 22:17] LABS: ADD UA MICROSCOPIC YES; APPEARANCE,URINE CLEAR (CLEAR); BILIRUBIN,URINE NEGATIVE (NEGATIVE); COLOR,URINE COLORLESS (YELLOW); GLUCOSE, URINE (UA) NEGATIVE (NEGATIVE); KETONES,URINE NEGATIVE (NEGATIVE); LEUKOCYTE ESTERASE ,URINE NEGATIVE Leu/uL (NEGATIVE); NITRATE,URINE NEGATIVE (NEGATIVE); OCCULT BLOOD,URINE NEGATIVE (NEGATIVE); PROTEIN,URINE 20 mg/dL (NEGATIVE); UROBILINOGEN,URINE 0.2 mg/dL (0.2-1.0)
[2023-09-05 22:21] LABS: BACTERIA,URINE RARE /HPF (None Seen); MUCUS,URINE RARE LPF (None Seen); OTHER CASTS, URINE 3 /LPF (None Seen); RBC,URINE 0-1 /HPF (0-1); SQUAMOUS EPITHELIAL CELL,UR RARE /HPF (0-2); WBC,URINE 0-1 /HPF (0-1)
[2023-09-05 22:24] LABS: AMPHET/METH SCREEN,URINE NEGATIVE (NEGATIVE); BARBITURATE SCREEN, URINE NEGATIVE (NEGATIVE); BENZODIAZEPINES SCREEN,URINE NEGATIVE (NEGATIVE); CANNABINOID SCREEN,URINE NEGATIVE (NEGATIVE); COCAINE SCREEN,URINE POSITIVE (NEGATIVE); OPIATE SCREEN,URINE NEGATIVE (NEGATIVE); PHENCYCLIDINE SCREEN,URINE NEGATIVE (NEGATIVE)
[2023-09-06 08:20] VITALS: BP 114/88; PULSE 88; RESP 16; O2SAT 98
== END 2023-09-06 08:21 | disposition home or self-care (01) ==
LOC: EDH 21:17
DX: F14.10 Cocaine abuse, uncomplicated (principal); F10.121 Alcohol abuse with intoxication delirium; Y90.8 Blood alcohol level of 240 mg/100 ml or more; E78.00 Pure hypercholesterolemia, unspecified; I10 Essential (primary) hypertension; F32.A Depression, unspecified; Z79.84 Long term (current) use of oral hypoglycemic drugs; Z79.899 Other long term (current) drug therapy
CPT/HCPCS: 99285; 70450; 71045; 82550; 80053; 80305; 82140; 85025; 85610; 85730; 81001; 36415 ×2; 93005; G0481

== ENCOUNTER 2023-09-14 13:28 | Emergency (ER) | payer OTHER ==
[~2023-09-14] VITALS: Ht 167.6 cm; Wt 93.0 kg
[2023-09-14] MEDS: DEXAMETHASONE SOD PHOSPHATE 4 MG/ML 1ML VIAL IM ONE (16:16)
[2023-09-14] MEDS: IPRATROPIUM/ALBUTEROL SULFATE 3 ML SOLUTION IH ONE (16:21)
[2023-09-14 16:22] VITALS: PULSE 85; RESP 18
[2023-09-14 16:48] LABS: COVID19 (SARS ANTIGEN RAPID) PRESUMPTIVE NEGATIVE (NEGATIVE); INFLUENZA TYPE A Negative For Type A (NEGATIVE); INFLUENZA TYPE B Negative For Type B (NEGATIVE)
[2023-09-14] MEDS ORDERED: AMOX1TAB16 PO (17:21)
[2023-09-14] MEDS ORDERED: IPRA6S NASAL (17:21)
[2023-09-14] MEDS ORDERED: IPRA4AER IH (17:21)
[2023-09-14] MEDS ORDERED: PANT40GR PO (17:24)
[2023-09-14] MEDS: CEFTRIAXONE 1G VIAL IM SCH (17:37)
[2023-09-14 18:08] VITALS: BP 133/88; PULSE 84; RESP 18; O2SAT 99
== END 2023-09-14 18:09 | disposition home or self-care (01) ==
LOC: EDH 13:28
DX: J40 Bronchitis, not specified as acute or chronic (principal); R06.2 Wheezing; J01.90 Acute sinusitis, unspecified; F32.A Depression, unspecified; E78.00 Pure hypercholesterolemia, unspecified; I10 Essential (primary) hypertension; E03.9 Hypothyroidism, unspecified; Z20.822 Contact with and (suspected) exposure to COVID-19
CPT/HCPCS: 99284; 71045; 87426; 87804 ×2; 96372 ×2; 94640; J1100; J0696

== ENCOUNTER 2024-03-13 14:06 | Inpatient (IN) | payer OTHER ==
[~2024-03-13] VITALS: Ht 165.1 cm; Wt 95.9 kg
[~2024-03-13 14:06] MED LIST changes: +AMOX1TAB16 PO; -HYDR25CA PO; +IPRA4AER IH; +IPRA6S NASAL; -LACT10SO9 PO; -METH4TAB3 PO; -ONDA4TAB10 PO; +PANT40GR PO
[2024-03-13 14:39] LABS: BASOPHILS # (AUTO) 0.04 K/uL (0.00-0.20); BASOPHILS % (AUTO) 0.6 % (0.0-5.0); EOSINOPHILS # (AUTO) 0.08 K/uL (0.00-0.70); EOSINOPHILS % (AUTO) 1.1 % (0.0-8.0); HEMATOCRIT 40.7 % (42-54); IMMATURE GRANULOCYTE ABSOLUTE 0.03 K/uL (0-1); LYMPHOCYTES # (AUTO) 1.4 K/uL (1.0-4.8); LYMPHOCYTES % (AUTO) 20.5 % (21.0-51.0); MEAN CORPUSCULAR HEMOGLOBIN 29.1 pg (27.0-33.0); MEAN CORPUSCULAR HGB CONC 34.4 g/dL (32.0-36.0); MEAN CORPUSCULAR VOLUME 84.6 fL (79-99); MONOCYTES # (AUTO) 0.6 K/uL (0.1-1.0); MONOCYTES % (AUTO) 8.6 % (3.0-13.0); NEUTROPHILS # (AUTO) 4.8 K/uL (1.8-7.7); NEUTROPHILS % (AUTO) 68.8 % (40.0-77.0); PLATELET COUNT (AUTO) 237 K/uL (130-400); RED BLOOD CELL COUNT(AUTO) 4.81 MIL/uL (4.50-6.20); RED CELL DISTRIBUTION WIDTH 13.4 % (11.0-15.5)
[2024-03-13 14:50] LABS: CARBON DIOXIDE 23 mmol/L (21-32); CHLORIDE 97 mmol/L (101-111); CREATININE 0.9 mg/dL (0.5-1.3); GLOMERULAR FILTR. RATE CALC 110 mL/min (>90); GLUCOSE,RANDOM 135 mg/dL (70-105); POTASSIUM 3.5 mmol/L (3.5-5.1); SODIUM SERUM 131 mmol/L (136-145); UREA NITROGEN, BLOOD 11 mg/dL (7-18)
[2024-03-13 15:04] LABS: ALCOHOL, BLOOD 48 mg/dL (0-10)
[2024-03-13] MEDS: 0.9%NACL 1000ML 1,000 ML IV ONE ×3 (15:04→15:49)
[2024-03-13 15:07] LABS: ACETAMINOPHEN < 1 mcg/mL (10-29); SALICYLATE < 2.8 mg/dL (2.8-20.0)
[2024-03-13 15:09] LABS: APPEARANCE,URINE CLEAR (CLEAR); BILIRUBIN,URINE NEGATIVE (NEGATIVE); COLOR,URINE COLORLESS (YELLOW); GLUCOSE, URINE (UA) NEGATIVE (NEGATIVE); KETONES,URINE NEGATIVE (NEGATIVE); LEUKOCYTE ESTERASE ,URINE NEGATIVE Leu/uL (NEGATIVE); NITRATE,URINE NEGATIVE (NEGATIVE); OCCULT BLOOD,URINE NEGATIVE (NEGATIVE); PH,URINE 6.5 (5.0-8.0); PROTEIN,URINE NEGATIVE (NEGATIVE); UROBILINOGEN,URINE 0.2 mg/dL (0.2-1.0)
[2024-03-13 15:09] LABS: CREATINE KINASE, TOTAL 716 U/L (21-232)
[2024-03-13 15:11] LABS: ADD UA MICROSCOPIC NO
[2024-03-13 15:27] LABS: AMPHET/METH SCREEN,URINE NEGATIVE (NEGATIVE); BARBITURATE SCREEN, URINE NEGATIVE (NEGATIVE); BENZODIAZEPINES SCREEN,URINE NEGATIVE (NEGATIVE); CANNABINOID SCREEN,URINE NEGATIVE (NEGATIVE); COCAINE SCREEN,URINE NEGATIVE (NEGATIVE); OPIATE SCREEN,URINE NEGATIVE (NEGATIVE); PHENCYCLIDINE SCREEN,URINE NEGATIVE (NEGATIVE)
[2024-03-13] MEDS: M.V.I. IV [ADULT] 10 ML, FOLic ACID 5 MG/ML VIAL 1 MG, THIAMINE HCL 100 MG in 0.9%NACL ... IV STA (15:57)
[2024-03-13] MEDS ORDERED: MAG/ALUM/SIMETH 30 ML UDCUP PO PRN (17:00)
[2024-03-13] MEDS ORDERED: NITROGLYCERIN 0.4 MG SL TAB SL PRN (17:00)
[2024-03-13] MEDS ORDERED: DiphenhydrAMINE HCL 25 MG CAPSULE PO PRN (17:00)
[2024-03-13] MEDS ORDERED: LACTULOSE 20 GM/30 ML UDCUP PO PRN (17:00)
[2024-03-13] MEDS ORDERED: PHARMACY COMMUNICATION MISC PRN (17:00)
[2024-03-13] MEDS ORDERED: guaiFENesin-DM 200/20MG 10ML PO PRN (17:00)
[2024-03-13] MEDS ORDERED: LORazepam 2 MG/ML 1 ML VIAL IVP PRN (17:00)
[2024-03-13] MEDS ORDERED: ondanSETRON 4MG INJ IV PRN (17:00)
[2024-03-13 18:54] LABS: ALBUMIN 3.7 g/dL (3.5-5.0); BILIRUBIN,DIRECT 0.1 mg/dL (0.0-0.3); BILIRUBIN,TOTAL 0.6 mg/dL (0.2-1.0); THYROID STIMULATING HORMONE 1.44 uIU/mL (0.36-3.74); TOTAL PROTEIN, SERUM 6.9 g/dL (6.0-8.3)
[2024-03-13] MEDS: FAMOTIDINE 20MG VIAL IV SCH (21:22)
[2024-03-13] MEDS: acetaMINOPHEN WITH coDEINE 1 TAB TAB PO PRN (21:23)
[2024-03-13 21:40] VITALS: BP 148/119; PULSE 75; RESP 18; TEMP 98.8; O2SAT 97
[2024-03-13 21:55] VITALS: BP 151/95; PULSE 78; RESP 18
[2024-03-13] MEDS: chlordiazePOXIDE HCL 25 MG CAP PO PRN (21:56)
[2024-03-13 23:00] VITALS: BP 138/96; PULSE 68; RESP 18; TEMP 98.2
[2024-03-14] VITALS (7 sets, daily range): BP systolic 134–153; BP diastolic 87–101; PULSE 63–108; RESP 18; TEMP 97.6–98.5; O2SAT 69–96
[2024-03-14 06:18] LABS: POTASSIUM 3.9 mmol/L (3.5-5.1)
[2024-03-14] MEDS: FOLic ACID 1 MG TABLET PO SCH (09:03)
[2024-03-14] MEDS: THIAMINE HCL 100 MG/ML 2ML VIAL IM SCH (09:03)
[2024-03-14] MEDS ORDERED: COMPOUND IV REFRIGERATED 1 EACH IVSOLN MISC PRN (11:30)
[2024-03-14] MEDS: hydrALAZine 20MG/ML VIAL IV PRN (11:43)
[2024-03-14] MEDS: 0.9%NACL 1000ML 1,000 ML IV SCH (11:43)
[2024-03-14] MEDS: THIAMINE HCL 100 MG, FOLic ACID 5 MG/ML VIAL 1 MG, M.V.I. IV [ADULT] 10 ML in 0.9%NACL ... IV SCH (17:41)
[2024-03-14] MEDS: acetaMINOPHEN 325 MG TAB PO PRN (20:10)
[2024-03-15] VITALS (8 sets, daily range): BP systolic 115–137; BP diastolic 86–95; PULSE 64–77; RESP 16–18; TEMP 97.7–98.7; O2SAT 69–96
[2024-03-15 04:40] LABS: BASOPHILS # (AUTO) 0.03 K/uL (0.00-0.20); BASOPHILS % (AUTO) 0.6 % (0.0-5.0); EOSINOPHILS # (AUTO) 0.14 K/uL (0.00-0.70); EOSINOPHILS % (AUTO) 2.9 % (0.0-8.0); HEMATOCRIT 37.9 % (42-54); IMMATURE GRANULOCYTE ABSOLUTE 0.02 K/uL (0-1); LYMPHOCYTES # (AUTO) 1.8 K/uL (1.0-4.8); LYMPHOCYTES % (AUTO) 36.7 % (21.0-51.0); MEAN CORPUSCULAR HEMOGLOBIN 28.5 pg (27.0-33.0); MEAN CORPUSCULAR VOLUME 86.3 fL (79-99); MONOCYTES # (AUTO) 0.4 K/uL (0.1-1.0); MONOCYTES % (AUTO) 8.3 % (3.0-13.0); NEUTROPHILS # (AUTO) 2.5 K/uL (1.8-7.7); NEUTROPHILS % (AUTO) 51.1 % (40.0-77.0); PLATELET COUNT (AUTO) 204 K/uL (130-400); RED BLOOD CELL COUNT(AUTO) 4.39 MIL/uL (4.50-6.20); RED CELL DISTRIBUTION WIDTH 13.4 % (11.0-15.5); WHITE BLOOD COUNT (AUTO) 4.8 K/uL (4.8-10.8)
[2024-03-15 05:10] LABS: ALBUMIN 3.1 g/dL (3.5-5.0); BILIRUBIN,TOTAL 0.3 mg/dL (0.2-1.0); CREATININE 1.1 mg/dL (0.5-1.3); MAGNESIUM 1.9 mg/dL (1.80-2.40); POTASSIUM 3.9 mmol/L (3.5-5.1); TOTAL PROTEIN, SERUM 6.5 g/dL (6.0-8.3)
[2024-03-15] MEDS: tamSULOsin HCL 0.4 MG CAP.ER.24H PO SCH (08:03)
[2024-03-15] MEDS: pregABALin 25 MG CAP PO SCH (08:03)
[2024-03-16] VITALS: BP 132/103; PULSE 75; RESP 18; TEMP 98.1
[2024-03-16 04:00] VITALS: BP 129/89; PULSE 71; RESP 18; TEMP 98.1
[2024-03-16 05:07] LABS: BASOPHILS # (AUTO) 0.03 K/uL (0.00-0.20); BASOPHILS % (AUTO) 0.6 % (0.0-5.0); EOSINOPHILS # (AUTO) 0.16 K/uL (0.00-0.70); EOSINOPHILS % (AUTO) 3.1 % (0.0-8.0); HEMATOCRIT 37.9 % (42-54); IMMATURE GRANULOCYTE ABSOLUTE 0.04 K/uL (0-1); LYMPHOCYTES # (AUTO) 1.7 K/uL (1.0-4.8); LYMPHOCYTES % (AUTO) 33.1 % (21.0-51.0); MEAN CORPUSCULAR HEMOGLOBIN 29.6 pg (27.0-33.0); MEAN CORPUSCULAR HGB CONC 33.2 g/dL (32.0-36.0); MONOCYTES # (AUTO) 0.4 K/uL (0.1-1.0); MONOCYTES % (AUTO) 6.8 % (3.0-13.0); NEUTROPHILS # (AUTO) 2.9 K/uL (1.8-7.7); NEUTROPHILS % (AUTO) 55.6 % (40.0-77.0); PLATELET COUNT (AUTO) 196 K/uL (130-400); RED BLOOD CELL COUNT(AUTO) 4.26 MIL/uL (4.50-6.20); RED CELL DISTRIBUTION WIDTH 13.4 % (11.0-15.5); WHITE BLOOD COUNT (AUTO) 5.1 K/uL (4.8-10.8)
[2024-03-16 05:31] LABS: ALBUMIN 2.8 g/dL (3.5-5.0); BILIRUBIN,TOTAL 0.4 mg/dL (0.2-1.0); CREATININE 0.9 mg/dL (0.5-1.3); MAGNESIUM 1.8 mg/dL (1.80-2.40); POTASSIUM 3.6 mmol/L (3.5-5.1)
[2024-03-16] MEDS ORDERED: PoTASSium chl 10% ELIXIR 20MEQ 20 MEQ/15 ML UDCUP PO PRN (06:30)
[2024-03-16] MEDS ORDERED: PoTASSium chloRIDE 20MEQ/100ML 100 ML IV PRN (06:30)
[2024-03-16] MEDS: MAGNESIUM 2GM PREMIX 50ML 50 ML IV PRN (06:34)
[2024-03-16] MEDS: PoTASSium chloRIDE 20MEQ ER 20 MEQ ERTAB PO PRN (06:35)
[2024-03-16 08:00] VITALS: BP 140/98; PULSE 61; RESP 14; TEMP 97.6
[2024-03-16 08:27] VITALS: O2SAT 98
[2024-03-16] MEDS ORDERED: PREG50CA64 PO (10:41)
[2024-03-16] MEDS: PoTASSium chloRIDE 20MEQ ER 20 MEQ ERTAB PO ONE (10:46)
== END 2024-03-16 11:45 | disposition home or self-care (01) | DRG 897 ==
LOC: EDH 14:06 → EDHIP 16:48 → 3DH 21:40
PROVIDERS: ADMIT Hospitalist; ATTEND Hospitalist
PROC: HZ2ZZZZ Detoxification Services for Substance Abuse Treatment (ICD-10-PCS; principal; 2024-03-13)
DX: F10.139 Alcohol abuse with withdrawal, unspecified (principal); M62.82 Rhabdomyolysis; E86.0 Dehydration; F10.129 Alcohol abuse with intoxication, unspecified; F43.10 Post-traumatic stress disorder, unspecified; I10 Essential (primary) hypertension; E03.9 Hypothyroidism, unspecified; E66.9 Obesity, unspecified; E78.00 Pure hypercholesterolemia, unspecified; Z91.018 Allergy to other foods; Z68.35 Body mass index [BMI] 35.0-35.9, adult
CPT/HCPCS: 36415; 71045; 74150; 76700; 80048; 80053; 80076; 80305; 81003; 82550; 82948; 83690; 83735; 84443; 84484; 85025; 93005; G0378; G0481; J0360; J3411; J3475; J3490; J7030

== ENCOUNTER 2024-08-18 20:44 | Inpatient (IN) | payer OTHER ==
[~2024-08-18] VITALS: Ht 165.1 cm; Wt 90.7 kg
[~2024-08-18 20:44] MED LIST changes: -AMOX1TAB16 PO; -DAPA10TA PO; -IPRA4AER IH; -IPRA6S NASAL; +OMEP20CA12 PO; -PANT40GR PO; -PANT40TA55 PO; -PRAV20TA4 PO; -PREG50CA64 PO; -TAMS-1 PO; +THIA100T91 PO
[2024-08-18 21:05] LABS: BASOPHILS # (AUTO) 0.07 K/uL (0.00-0.20); BASOPHILS % (AUTO) 0.9 % (0.0-5.0); EOSINOPHILS % (AUTO) 1.3 % (0.0-8.0); HEMATOCRIT 43.2 % (42-54); IMMATURE GRANULOCYTE ABSOLUTE 0.02 K/uL (0-1); LYMPHOCYTES # (AUTO) 1.6 K/uL (1.0-4.8); LYMPHOCYTES % (AUTO) 20.9 % (21.0-51.0); MEAN CORPUSCULAR HEMOGLOBIN 29.1 pg (27.0-33.0); MEAN CORPUSCULAR VOLUME 85.5 fL (79-99); MONOCYTES # (AUTO) 0.5 K/uL (0.1-1.0); MONOCYTES % (AUTO) 6.3 % (3.0-13.0); NEUTROPHILS # (AUTO) 5.4 K/uL (1.8-7.7); NEUTROPHILS % (AUTO) 70.3 % (40.0-77.0); PLATELET COUNT (AUTO) 251 K/uL (130-400); RED BLOOD CELL COUNT(AUTO) 5.05 MIL/uL (4.50-6.20); RED CELL DISTRIBUTION WIDTH 13.7 % (11.0-15.5); WHITE BLOOD COUNT (AUTO) 7.6 K/uL (4.8-10.8)
--- NOTE | 2024-08-18 21:05 | EKG ---
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
[2024-08-18 21:16] LABS: APPEARANCE,URINE CLEAR (CLEAR); BILIRUBIN,URINE NEGATIVE (NEGATIVE); COLOR,URINE COLORLESS (YELLOW); GLUCOSE, URINE (UA) NEGATIVE (NEGATIVE); KETONES,URINE NEGATIVE (NEGATIVE); LEUKOCYTE ESTERASE ,URINE NEGATIVE Leu/uL (NEGATIVE); NITRATE,URINE NEGATIVE (NEGATIVE); OCCULT BLOOD,URINE NEGATIVE (NEGATIVE); PROTEIN,URINE NEGATIVE (NEGATIVE); UROBILINOGEN,URINE 0.2 mg/dL (0.2-1.0)
[2024-08-18 21:17] LABS: ADD UA MICROSCOPIC YES
[2024-08-18 21:18] LABS: RBC,URINE 0-1 /HPF (0-1); WBC,URINE 0-1 /HPF (0-1)
[2024-08-18 21:20] LABS: POTASSIUM 3.6 mmol/L (3.5-5.1)
--- NOTE | 2024-08-18 21:20 | HMCIMG ---
PORTABLE CHEST RADIOGRAPH INDICATION: CHEST PAIN COMPARISON: 03/13/2024 FINDINGS: Heart size is normal. The pulmonary vascularity and dario appear normal. No abnormal pulmonary parenchymal opacity or consolidation identified. No significant pleural effusion noted. No pneumothorax detected. IMPRESSION: No radiographic evidence for any acute cardiopulmonary process.
[2024-08-18 21:22] LABS: AMPHET/METH SCREEN,URINE NEGATIVE (NEGATIVE); BARBITURATE SCREEN, URINE NEGATIVE (NEGATIVE); BENZODIAZEPINES SCREEN,URINE NEGATIVE (NEGATIVE); CANNABINOID SCREEN,URINE NEGATIVE (NEGATIVE); COCAINE SCREEN,URINE NEGATIVE (NEGATIVE); OPIATE SCREEN,URINE NEGATIVE (NEGATIVE); PHENCYCLIDINE SCREEN,URINE NEGATIVE (NEGATIVE)
--- NOTE | 2024-08-18 21:30 | ERN ---
ED Note History of Present Illness Stated Complaint: CHEST PAIN, DIZZINESS, SOB Chief Complaint: Chest Pain Time Seen by MD: 21:12 Dictation: This is a 43-year-old male who presented to the emergency room with complaints of chest tightness and dizziness that started around 1400s today stated that he was feeling dizzy when he was standing and feeling like he might pass out. No syncope he also reported that he had difficulty catching his breath no cough sputum or hemoptysis no fevers chills or rigors. He admits to doing cocaine recently. He started complaining of severe shakiness and tremulousness and he has had delirium tremens before and feels that he has similar presentation. He normally drinks 08/30/2026 beer cans daily and has been drinking daily since new year. His last drink was yesterday Temperature 97.8 pulse 99 respirations 20 blood pressure 162/135 pulse oximetry 98% on room air His chronic medical problems include diabetes mellitus, hypertension, hypothyroidism, history of cirrhosis of the liver and right testicle surgery Allergies: Coded Allergies: No Known Drug Allergies (Verified Allergy, Unknown, 03/05/19) blueberry (Unverified Allergy, Unknown, 03/05/19) Home Meds Active Scripts Ipratropium/Albuterol Sulfate (Combivent Respimat Inhal Trinity) 20 Mcg-100 Mcg/Actuation Aer.w.adap, 2 PUFF IH TID, #4 GM 0 Refills Prov:KEITH BARBER MD 08/18/24 Azithromycin (Zithromax) 500 Mg Tablet, 1 TAB PO DAILY for 5 Days, #5 TAB 0 Refills Prov:KEITH BARBER MD 08/18/24 Prednisone (Prednisone) 20 Mg Tablet, 1 TAB PO AD for 6 Days, #14 TAB 0 Refills TAKE 1 TAB BY MOUTH THREE TIMES PER DAY X3 DAYS, THEN TAKE 1 TAB BY MOUTH TWICE A DAY X2 DAYS, THEN TAKE 1 TAB BY MOUTH ONCE A DAY X1 DAY. Prov:KEITH BARBER MD 08/18/24 Thiamine HCl (Vitamin B-1) 100 Mg Tablet, 100 MG PO DAILY for 7 Days, #7 TAB Prov:CASIMIRO ASCENCIO NP 04/23/24 Reported Medications Omeprazole (Omeprazole) 20 Mg Capsule.dr, 1 CAP PO DAILY for 30 Days, #30 CAP 0 Refills 04/21/24 Past Medical History Past Medical History: Diabetes-Type II, Hypertension, Hypothyroid, Liver Disease Additional Past Medical Hx: chirrosis Surgical History: Other Surgical History Other: RT TESTICLE Family History: Negative Social History: Drugs, ETOH, Other RN Note Reviewed/Agreed w/PFSH: Yes Review of System Dictation Constitutional: Negative for fever,chills, and weight loss Eyes: Negative for injury, pain,redness, and discharge ENT: Negative for injury,pain or swelling Cardiovascular: Positive for chest tightness, palpitations, and edema Respiratory: Positive for shortness of breath, cough, and wheezing, Abdomen/GI: Negative for abdominal pain, nausea, vomiting, diarrhea, and constipation Back: Negative for injury and pain : Negative for injury, bleeding and discharge MS/Extremity: Negative for injury and deformity Skin: Negative for rash, and discoloration Neuro: Negative for headache, weakness, numbness, tingling, and seizure , tremulousness Psych: Negative for suicide ideation, homicidal ideation, and hallucinations Initial Vital Sign VS Vital Signs Date Time Temp Pulse Resp B/P (MAP) Pulse Ox O2 Delivery O2 Flow Rate FiO2 08/18/24 20:45 97.9 99 20 162/135 97 Room Air 08/18/24 21:06 0 21 Physical Exam Dictation General: awake, alert, NAD obese male Head/Face: Normocephalic, atraumatic Eyes: PERRL, EOMI, vision at baseline ENT: oral cavity clear, TMs clear, no signs of infection Neck: Trachea midline, supple, no nuchal rigidity Cardiovascular: RRR, normal S1/S2, No MRGs, no JVD Respiratory: CTAB, no respiratory distress, No rales or wheezes Abdomen: Soft, non-tender, non-distended, normal bowel sounds, no guarding or rebound. Skin: Warm, dry, normal turgor, no rash MS/Extremity: Pulses equal, no cyanosis, neurovascular intact, FROM Neuro: COAx4, GCS 15, strength 5/5, CN 2-12 intact, normal cerebellar exam, normal gait, Psych: Normal behavior, mood, and affect normal Extremities-trace edema without any palpable cords, Homans sign is negative Results (Laboratory/Radiology) Laboratory/Radiology Laboratory Tests Test 08/18/24 20:54 08/18/24 21:26 08/19/24 06:47 08/19/24 11:39 White Blood Count 7.6 K/uL (4.8-10.8) 5.6 K/uL (4.8-10.8) # Red Blood Count 5.05 MIL/uL (4.50-6.20) 4.85 MIL/uL (4.50-6.20) Hemoglobin 14.7 g/dL (14.0-18.0) 14.2 g/dL (14.0-18.0) Hematocrit 43.2 % (42-54) 42.2 % (42-54) Mean Corpuscular Volume 85.5 fL (79-99) 87.0 fL (79-99) Mean Corpuscular Hemoglobin 29.1 pg (27.0-33.0) 29.3 pg (27.0-33.0) Mean Corpuscular Hemoglobin Concent 34.0 g/dL (32.0-36.0) 33.6 g/dL (32.0-36.0) Red Cell Distribution Width 13.7 % (11.0-15.5) 13.7 % (11.0-15.5) Platelet Count 251 K/uL (130-400) 280 K/uL (130-400) Mean Platelet Volume 10.4 fL (7.5-10.5) 9.4 fL (7.5-10.5) Immature Granulocyte % (Auto) 0.3 % (0-1) 0.4 % (0-1) Neutrophils (%) (Auto) 70.3 % (40.0-77.0) 91.1 % (40.0-77.0) H Lymphocytes (%) (Auto) 20.9 % (21.0-51.0) L 7.4 % (21.0-51.0) L Monocytes (%) (Auto) 6.3 % (3.0-13.0) 0.9 % (3.0-13.0) L Eosinophils (%) (Auto) 1.3 % (0.0-8.0) 0.0 % (0.0-8.0) Basophils (%) (Auto) 0.9 % (0.0-5.0) 0.2 % (0.0-5.0) Neutrophils # (Auto) 5.4 K/uL (1.8-7.7) 5.1 K/uL (1.8-7.7) Lymphocytes # (Auto) 1.6 K/uL (1.0-4.8) 0.4 K/uL (1.0-4.8) L Monocytes # (Auto) 0.5 K/uL (0.1-1.0) 0.1 K/uL (0.1-1.0) Eosinophils # (Auto) 0.10 K/uL (0.00-0.70) 0.00 K/uL (0.00-0.70) Basophils # (Auto) 0.07 K/uL (0.00-0.20) 0.01 K/uL (0.00-0.20) Absolute Immature Granulocyte (auto 0.02 K/uL (0-1) 0.02 K/uL (0-1) Nucleated Red Blood Cells 0.0 % (0.0-0.19) 0.0 % (0.0-0.19) Urine Color COLORLESS (YELLOW) Urine Appearance CLEAR (CLEAR) Urine pH 7.0 (5.0-8.0) Urine Specific Picher 1.004 (1.001-1.031) Urine Protein NEGATIVE mg/dL (NEGATIVE) Urine Glucose (UA) NEGATIVE mg/dL (NEGATIVE) Urine Ketones NEGATIVE mg/dL (NEGATIVE) Urine Occult Blood NEGATIVE (NEGATIVE) Urine Nitrate NEGATIVE (NEGATIVE) Urine Bilirubin NEGATIVE mg/dL (NEGATIVE) Urine Urobilinogen 0.2 mg/dL (0.2-1.0) Urine Leukocyte Esterase NEGATIVE Anne/uL Urine RBC 0-1 /HPF (0-1) Urine WBC 0-1 /HPF (0-1) Urine Bacteria None /HPF (None Seen) Sodium Level 139 mmol/L (136-145) 142 mmol/L (136-145) Potassium Level 3.6 mmol/L (3.5-5.1) 4.2 mmol/L (3.5-5.1) Chloride Level 98 mmol/L (101-111) L 103 mmol/L (101-111) Carbon Dioxide Level 32 mmol/L (21-32) 29 mmol/L (21-32) Blood Urea Nitrogen 7 mg/dL (7-18) 5 mg/dL (7-18) L Creatinine 1.0 mg/dL (0.5-1.3) 0.8 mg/dL (0.5-1.3) Glomerular Filtration Rate Calc 97 mL/min (>90) 114 mL/min (>90) Random Glucose 135 mg/dL (70-105) H 153 mg/dL (70-105) H Total Calcium 9.0 mg/dL (8.5-10.1) 8.7 mg/dL (8.5-10.1) Total Creatine Kinase 355 U/L (21-232) #H Troponin I High Sensitivity 6 ng/L (4-75) 6 ng/L (4-75) 5 ng/L (4-75) B-Type Natriuretic Peptide 6 pg/mL (0-100) Urine Opiates Screen NEGATIVE (NEGATIVE) Urine Barbiturates Screen NEGATIVE (NEGATIVE) Urine Phencyclidine Screen NEGATIVE (NEGATIVE) Urine Amphetamines Screen NEGATIVE (NEGATIVE) Urine Benzodiazepines Screen NEGATIVE (NEGATIVE) Urine Cocaine Screen NEGATIVE (NEGATIVE) Urine Marijuana (THC) Screen NEGATIVE (NEGATIVE) Troponin I < 0.05 ng/mL (0.00-0.05) White Cell Morphology Comment See comments Phosphorus Level 3.0 mg/dL (2.5-4.9) Magnesium Level 1.90 mg/dL (1.80-2.40) Test 08/19/24 16:34 Troponin I High Sensitivity 6 ng/L (4-75) Labs Reviewed?: Yes ED Course ED Course Orders Procedure Category Date Status Time Vital Signs Per CPOE 08/18/24 Transmitted Routine 20:46 B-Type Natriuretic LAB 08/18/24 Complete Peptide 20:46 Chest 1vw RAD 08/18/24 Resulted 20:46 12 Lead Ekg Tracing- EKG 08/18/24 Resulted Technical 20:46 Oxygen By Nc/Pulse Ox CPOE 08/18/24 Transmitted 20:46 Maintain Iv CPOE 08/18/24 Transmitted 20:46 Iv Insertion CPOE 08/18/24 Transmitted 20:46 Cardiac Monitoring CPOE 08/18/24 Transmitted 20:46 Pulse Oximetry With CPOE 08/18/24 Transmitted Vs And Prn 20:46 Cbc With Differential LAB 08/18/24 Complete 20:46 Activity: Br W/Brp CPOE 08/18/24 Transmitted With Assist 20:46 Creatine Kinase, Total LAB 08/18/24 Complete 20:46 Troponin I High LAB 08/18/24 Complete Sensitivity 20:46 Urinalysis Profile LAB 08/18/24 Complete 20:46 Troponin Poc Order LAB 08/18/24 Complete Only 20:46 Bedside Troponin-I LAB.ER 08/18/24 In Process (Poc) 20:46 Basic Metabolic Panel LAB 08/18/24 Complete 20:46 Drug Screen Urine LAB 08/18/24 Complete 20:54 Methylprednisolone PHA 08/18/24 Complete Succ 125mg (Solu-Medr 22:00 Ipratropium/Albuterol PHA 08/18/24 Complete Neb (Duoneb) 22:00 Lorazepam 2 Mg PHA 08/18/24 Complete (Ativan) 22:30 Lorazepam 2 Mg PHA 08/18/24 Complete (Ativan) 22:17 0.9%Nacl 1000ml (Ns PHA 08/19/24 Complete 1000ml) 01:00 Etoh Alcohol RAJEEV 08/19/24 In Process Withdrawal Ords 00:39 Chlordiazepoxide Hcl PHA 08/19/24 In Process 25 Mg Cap (Librium 01:00 Lorazepam 2 Mg PHA 08/19/24 In Process (Ativan) 01:00 Thiamine Hcl (Vitamin PHA 08/19/24 In Process B-1)... 01:00 Pharmacy PHA 08/19/24 In Process Communication 01:00 Use The Ciwa-Ar CPOE 08/19/24 Transmitted Assmt. Tool 00:39 Assess The Need For CPOE 08/19/24 Transmitted Seizure & 00:39 Vs Per Unit Routine & CPOE 08/19/24 Transmitted With 00:39 Document Etoh CPOE 08/19/24 Transmitted Withdrawal Score 00:39 Admit Orders ADM 08/19/24 Transmitted 00:39 Edm Admit Bridge Order ADM 08/19/24 Transmitted 00:39 Troponin I High LAB 08/19/24 Complete Sensitivity 04:00 Troponin I High LAB 08/19/24 Complete Sensitivity 10:00 Troponin I High LAB 08/19/24 Complete Sensitivity 16:00 Aspirin 81mg Chew Tab PHA 08/19/24 Complete (Aspirin 81mg Chew 01:30 Aspirin 81mg Chew Tab PHA 08/19/24 In Process (Aspirin 81mg Chew 09:00 Nitroglycerin 1gm PHA 08/19/24 In Process Oint (Nitroglycerin 1g 01:30 Consistent Carb DIET 08/20/24 Transmitted Breakfast Basic Metabolic Panel LAB 08/19/24 Complete 04:00 Magnesium LAB 08/19/24 Complete 04:00 Phosphorus LAB 08/19/24 Complete 04:00 Cbc With Differential LAB 08/19/24 Complete 04:00 Initiate Po RAJEEV 08/19/24 In Process Hypokalemia Protoc 01:19 Potassium Chloride PHA 08/19/24 In Process 20meq/100ml (Potassiu 01:30 Potassium Chl 10% PHA 08/19/24 In Process Elixir 20meq (Kcl 10% 01:30 Potassium Chloride PHA 08/19/24 In Process 20meq Er (K-Dur/Klor- 01:30 Notify Physician If CPOE 08/19/24 Transmitted There Is 01:19 Notify Md On The Next CPOE 08/19/24 Transmitted 01:19 Notify Md On The CPOE 08/19/24 Transmitted Next(Cont.) 01:19 Magnesium 2gm Premix PHA 08/19/24 In Process 50ml (Magnesium 2gm 01:30 Activity: Ad Nadia CPOE 08/19/24 Transmitted 01:19 Nurse To Enter Home CPOE 08/19/24 Transmitted Medication 01:19 Oxygen By Nc/Pulse Ox CPOE 08/19/24 Transmitted 01:19 Telemetry Monitoring CPOE 08/19/24 Transmitted 01:19 Vital Signs(Adult CPOE 08/19/24 Transmitted Hospitalist) 01:19 Acetaminophen 325 Tab PHA 08/19/24 In Process (Tylenol 325mg Tab 01:30 Famotidine 20mg Tab PHA 08/19/24 In Process (Pepcid 20mg Tab) 09:00 Hydralazine 20mg Inj PHA 08/19/24 In Process (Apresoline 20mg In 01:30 Enoxaparin Sodium 40 PHA 08/19/24 In Process Mg/0.4 Ml (Lovenox) 09:00 Morphine 4mg Syg PHA 08/19/24 In Process (Morphine 4mg Syg) 01:30 Ondansetron 4mg Inj PHA 08/19/24 In Process (Zofran 4mg Inj) 01:30 Tsh High Sensitivity LAB 08/19/24 In Process 04:00 Albuterol 0.083% PHA 08/19/24 In Process 2.5mg/3ml (Proventil 01:30 Cbc With Differential LAB 08/20/24 Verified 04:00 Basic Metabolic Panel LAB 08/20/24 Verified 04:00 Current Medications Medications (Trade) Dose Ordered Sig/Sahil Route PRN Reason Start Time Stop Time Status Last Admin Dose Admin Albuterol (DUOneb) 1 UDVIAL ONCE ONCE IH 08/18/24 22:00 08/18/24 22:01 DC 08/18/24 22:51 Lorazepam (AtiVAN) 1 mg ONCE ONCE IVP 08/18/24 22:30 08/18/24 22:31 DC 08/18/24 22:25 Lorazepam (AtiVAN) 2 mg STK-MED ONCE .ROUTE 08/18/24 22:17 08/18/24 22:17 DC Methylprednisolone Sodium Succinate (Solu-medROL 125MG) 60 mg ONCE ONCE IM 08/18/24 22:00 08/18/24 22:01 DC 08/18/24 22:10 Vital Signs Date Time Temp Pulse Resp B/P (MAP) Pulse Ox O2 Delivery O2 Flow Rate FiO2 08/19/24 20:11 98.4 83 16 165/52 99 Room Air* 0 08/19/24 18:15 91 18 N/A Room Air 08/19/24 17:30 98.2 74 16 149/98 99 Room Air* 0 08/19/24 12:43 98.6 78 13 142/97 98 Room Air* 0 08/19/24 10:03 97.5 78 12 147/86 97 Room Air* 0 08/19/24 06:47 65 15 129/90 96 Room Air* 0 08/19/24 06:42 18 N/A Room Air 08/19/24 04:15 69 15 117/87 95 Room Air* 0 08/19/24 02:24 68 15 144/93 95 Room Air* 0 08/19/24 00:00 78 18 158/98 98 Room Air* 0 08/18/24 22:54 84 20 N/A Room Air 08/18/24 22:54 84 08/18/24 22:47 94 16 140/88 98 Room Air* 0 08/18/24 21:06 98.1 96 12 156/100 98 Room Air* 0 08/18/24 20:45 97.9 99 20 162/135 97 Room Air We will perform diagnostic labs, advanced imaging and administer medications according to the patient's complaint. Once the results are available, will review and personally interpreted the labs to rule out any acute life- threatening emergency the trach require immediate intervention and treatment. I will then re-evaluate the patient after treatment and diagnostic exams have return to determine whether the patient requires any further testing, can safely be discharged home or need further admission to hospital for additional treatment and evaluation. Labs reviewed CBC BNP 7 with a normal limits sugar was slightly elevated. Urine drug screen is negative urinalysis is negative Chest x-ray preliminary my interpretation no acute infiltrate. With patient's increasing tremulousness hypertension and increased CPK, it is concerning for early alcohol withdrawal delirium tremens. Admit for IV fluids and CIWA protocol Patient accepted by Cosmo Donovan, mid-level provider for hospitalist group for admission and further management Medical Decision Making MDM MDM: Differential diagnosis: Atypical chest pain, cocaine related toxicity, chemical bronchitis secondary to inhalational injury from cocaine and marijuana, early delirium tremens Rationale: Tests considered and ordered secondary to shared decision making include: labs, ECG and radiology Previous outside records reviewed: Old ER visits. Risk of complication and/or morbidity or mortality of patient management: None Medications-Per medication reconciliation Need for hospitalization: Patient does meet criteria for hospitalization. Need for emergency major/minor surgery: No There are no social concerns with this patient. Prescription drug management Prescriptions will include symptomatic care Patient's prior external medical records from other ER visits were reviewed by me as indicated. Prior testing and results from previous visits were reviewed. Prior tests were taken into account with medical decision making and resource utilization, independent historian/historians were used to obtain complete medical history. I independently interpreted the test that were performed, results were reviewed by me and considered findings on radiology if ordered. Medical management and examination interpretation discussions were had by me with other qualified healthcare professionals as indicated for the patient's care. Problem List Problem List: (1) Dizziness (2) Polysubstance abuse (3) Depression (4) Alcohol abuse (5) Cocaine abuse (6) Atypical chest pain (7) Alcohol withdrawal DX & DISP Disposition: Inpatient Departure Impression: Primary Impression: Dizziness Additional Impressions: Cocaine abuse, Alcohol abuse, Depression, Acute b acterial bronchitis, Elevated CK, Alcohol withdrawal, Atypical chest pain Condition: Stable Scripts Ipratropium/Albuterol Sulfate (Combivent Respimat Inhal Trinity) 20 Mcg-100 Mcg/Actuation Aer.w.adap 2 PUFF IH TID, #4 GM 0 Refills Prov: KEITH BARBER MD 08/18/24 Azithromycin (Zithromax) 500 Mg Tablet 1 TAB PO DAILY for 5 Days, #5 TAB 0 Refills Prov: KEITH BARBER MD 08/18/24 Prednisone (Prednisone) 20 Mg Tablet 1 TAB PO AD for 6 Days, #14 TAB 0 Refills TAKE 1 TAB BY MOUTH THREE TIMES PER DAY X3 DAYS, THEN TAKE 1 TAB BY MOUTH TWICE A DAY X2 DAYS, THEN TAKE 1 TAB BY MOUTH ONCE A DAY X1 DAY. Prov: KEITH BARBER MD 08/18/24 Additional Instructions: Patient was informed of all the diagnostic labs and procedures conducted in the emergency room today and demonstrated understanding of the results. I personally reviewed and interpreted all the diagnostic exams performed in the ER today. The patient will be admitted to the hospital for further treatment and evaluation. Disposition-admit to facility Condition-stable/guarded Course-uncertain at this time Pain status-decreased Assessment-exam unchanged Admission Certification- I certify that the patients status is appropriate and is based on my best clinical judgment and the patient's condition as documented in the medical records Referrals: SELF,REFERRAL (PCP) KEITH BARBER MD Aug 18, 2024 21:30
[2024-08-18 21:38] LABS: B-TYPE NATRIURETIC PEPTIDE 6 pg/mL (0-100)
[2024-08-18] MEDS ORDERED: IPRA4AER IH (22:02)
[2024-08-18] MEDS ORDERED: PRED20TA3 PO (22:02)
[2024-08-18] MEDS ORDERED: AZIT500T PO (22:02)
[2024-08-18] MEDS: Solu-medROL 125MG VIAL IM ONE (22:10)
[2024-08-18] MEDS: LORazepam 2 MG/ML 1 ML VIAL ONE (22:25)
[2024-08-18] MEDS: LORazepam 2 MG/ML 1 ML VIAL IVP ONE (22:25)
[2024-08-18] MEDS: IpraTROPium/alBUTERol SULFATE 3 ML SOLUTION IH ONE (22:51)
[2024-08-18 22:54] VITALS: PULSE 84; RESP 20; O2SAT 97
[2024-08-19] MEDS: 0.9%NACL 1000ML 1,000 ML IV ONE (00:37)
[2024-08-19] MEDS: chlordiazePOXIDE HCL 25 MG CAP PO SCH (00:59)
[2024-08-19] MEDS ORDERED: LORazepam 2 MG/ML 1 ML VIAL IVP PRN (01:00)
[2024-08-19] MEDS ORDERED: PHARMACY COMMUNICATION MISC PRN (01:00)
[2024-08-19] MEDS: THIAMINE HCL 100 MG, FOLic ACID 5 MG/ML VIAL 1 MG, M.V.I. IV [ADULT] 10 ML in 0.9%NACL ... IV SCH (01:00)
[2024-08-19] MEDS ORDERED: morPHINE 4 MG SYG IVP PRN (01:30)
[2024-08-19] MEDS ORDERED: PoTASSium chl 10% ELIXIR 20MEQ 20 MEQ/15 ML UDCUP PO PRN (01:30)
[2024-08-19] MEDS ORDERED: ALBUTEROL 0.083% 2.5 MG/3 ML INH IH PRN (01:30)
[2024-08-19] MEDS ORDERED: MAGNESIUM 2GM PREMIX 50ML 50 ML IV PRN (01:30)
[2024-08-19] MEDS ORDERED: ondanSETRON 4MG INJ IV PRN (01:30)
[2024-08-19] MEDS ORDERED: PoTASSium chloRIDE 20MEQ/100ML 100 ML IV PRN (01:30)
--- NOTE | 2024-08-19 01:30 | HP ---
History of Present Illness Reason for Visit: Chest pain Referring MD: Self referral History of Present Illness Mr. Ingram is a 43-year-old male that was seen and examined today on 08/19/2024. Patient is a good historian and personal health. Patient reports that he came to the emergency department with a chief complaint of chest pain. Onset was 2099. Location is to left pectoral area. Duration is constant. Character is described as pressure and tightness. There was no alleviating factors. Symptoms are aggravated with deep breaths. Patient denies any associated shortness of breath. Today in the emergency department CBC unremarkable, chemistry unremarkable, urinalysis unremarkable, urine toxicology unremarkable. Emergency room physician recommended that patient be admitted with a diagnosis of chest pain. Patient relates that he drinks 24 beers daily. Past Medical History Patient History: Diabetes mellitus MOTHER, Onset:30's - 40 Hypertension MOTHER No Family History of: Alzheimer's disease Asthma Carcinomas Cardiovascular disease Chronic obstructive pulmonary disease Completed stroke Immunocompromised state ADDITIONAL PAST MEDICAL HISTORY: [Hypertension, hypothyroidism, hyperlipidemia, bronchitis] SOCIAL HISTORY: [Negative for tobacco use. Patient drinks 24 beers daily that are 12 oz each possibly more. Patient uses marijuana 2 times a week. Patient occasionally uses cocaine with last cocaine use being two days ago. Patient denies any other illegal drug use. Patient lives with his mom Jessika Ingram. Patient is independent of all his ADLs. Patient denies difficulty pain is bills. 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 Patient has good access to health care through his insurance.] SURGICAL HISTORY: [Right testicular surgery] Review of Systems General: No Fever, No Chills, No Night Sweats, No Fatigue, No Malaise, No Appetite, No Other HEENT: No Head Aches, No Visual Changes, No Eye Pain, No Ear Pain, No Dysphasia, No Sinus Congestion, No Post Nasal Drip, No Sore Throat, No Other Pulmonary: No Dyspnea, No Cough, No Pleuritic Chest Pain, No Other Cardiovascular: Chest Pain; No: Palpitations, Orthopnea, Paroxysmal Noc. Dyspnea, Edema, Lt Headedness, Other Gastrointestinal: No: Nausea, Vomiting, Abdominal Pain, Diarrhea, Constipation, Melena, Hematochezia, Other Genitourinary: No Dysuria, No Frequency, No Incontinence, No Hematuria, No Retention, No Other Musculoskeletal: No: other, neck pain, shoulder pain, arm pain, back pain, hand pain, leg pain, foot pain Skin: No Urticaria, No Rash, No Other Neurological: No: Weakness, Numbness, Incoordination, Change in speech, Confusion, Seizures, Other Allergies: Coded Allergies: No Known Drug Allergies (Verified Allergy, Unknown, 03/05/19) blueberry (Unverified Allergy, Unknown, 03/05/19) Scheduled Azithromycin (Zithromax), 1 TAB PO DAILY Ipratropium/Albuterol Sulfate (Combivent Respimat Inhal Morgan), 2 PUFF IH TID Omeprazole (Omeprazole), 1 CAP PO DAILY, (Reported) Prednisone (Prednisone), 1 TAB PO AD Thiamine HCl (Vitamin B-1), 100 MG PO DAILY Exam Vital Signs Vital Signs Date Time Temp Pulse Resp B/P (MAP) Pulse Ox O2 Delivery O2 Flow Rate FiO2 08/19/24 00:00 78 18 158/98 98 Room Air* 0 21 08/18/24 21:06 98.1 General Appearance: Alert, Oriented X3, Cooperative, No acute distress HEENT: Atraumatic, PERRLA, EOMI, Mucous membr. moist/pink Respiratory: Clear to auscultation, Normal air movement, NL respiratory effort Cardiovascular: Regular rate, Regular rhythm, Normal S1, Normal S2 Abdominal: Normal bowel sounds, Soft, No tenderness, No hepatospenomegaly Extremities: Normal pulses Skin: No significant lesion Neuro: Normal speech, Strength at 5/5 X4 ext, Cranial nerves 3-12 NL Psych/Mental Status: Mental status NL, Mood NL, Thoughts/Content NL Assessment/Plan ASSESSMENT: [ Chest pain, POA Alcohol dependence, POA Polysubstance abuse, POA] PLAN: [. Admit patient to medical floor as inpatient status. Place patient on telemetry monitoring. Administer aspirin 162 mg by mouth times 1 dose Continue aspirin 81 mg by mouth once daily Nitropaste 0.5 inches anterior chest wall every 8 hours Trend troponin every 6 hours x 3 sets Supplemental oxygen to maintain O2 saturation greater than 92% Consult cardiology if any elevation in troponin or troponin uptrending Counseled patient on alcohol cessation. Librium 25 mg by mouth every 8 hours As needed Ativan for alcohol withdrawal 1 mg every 4 hours Use CIWA-AR assessment tool Document EtOH withdrawal score Assess the need for seizure and aspiration precautions Consult patient on cocaine cessation. Consult patient on marijuana cessation. GI prophylaxis, famotidine DVT prophylaxis, Lovenox ADVANCED CARE PLANNING 1. Which of the following were discussed? Hospice Care - Yes Therapeutic options - Yes Advance Directives - Yes- patient states he does not have any advance directives in place at this time, however his mom can make decisions for him if he becomes unable. Other discussions - patient wishes to remain a full code at this time 2. Discussed with who? Patient 3. Voluntary nature of this service was explained to the patient? Yes 4. Amount of time spent - ___ 16 minutes ____ 5. Reviewed by Physician? (if this service was performed by NPP) Yes This document was generated in part using voice recognition software, occasional wrong word or sound alike substitutions may have occurred due to the inherent limitations of voice recognition software. Read the chart carefully and recognize using context, where the substitutions have occurred. Although every effort was made to edit the content, employment office clerk and typing errors may occur ATTESTATION BY PHYSICIAN I have seen and examined the patient. I reviewed the documentation, medical decision making, and treatment plan as noted by the mid-level provider above. I agree with the findings and plan of care. DEB ECHOLS STORE ADMINISTRATOR Aug 19, 2024 01:30
[2024-08-19] MEDS: ASPIRIN 81MG CHEW TAB PO ONE (02:12)
[2024-08-19] MEDS: NITROGLYCERIN 1GM OINT 1 INCH/1GM TD SCH (02:13)
[2024-08-19 06:42] VITALS: RESP 18; O2SAT 96
[2024-08-19 07:20] LABS: BASOPHILS # (AUTO) 0.01 K/uL (0.00-0.20); BASOPHILS % (AUTO) 0.2 % (0.0-5.0); HEMATOCRIT 42.2 % (42-54); IMMATURE GRANULOCYTE ABSOLUTE 0.02 K/uL (0-1); LYMPHOCYTES # (AUTO) 0.4 K/uL (1.0-4.8); LYMPHOCYTES % (AUTO) 7.4 % (21.0-51.0); MEAN CORPUSCULAR HEMOGLOBIN 29.3 pg (27.0-33.0); MEAN CORPUSCULAR HGB CONC 33.6 g/dL (32.0-36.0); MONOCYTES # (AUTO) 0.1 K/uL (0.1-1.0); MONOCYTES % (AUTO) 0.9 % (3.0-13.0); NEUTROPHILS # (AUTO) 5.1 K/uL (1.8-7.7); NEUTROPHILS % (AUTO) 91.1 % (40.0-77.0); PLATELET COUNT (AUTO) 280 K/uL (130-400); RED BLOOD CELL COUNT(AUTO) 4.85 MIL/uL (4.50-6.20); RED CELL DISTRIBUTION WIDTH 13.7 % (11.0-15.5); WHITE BLOOD COUNT (AUTO) 5.6 K/uL (4.8-10.8)
[2024-08-19 07:31] LABS: CREATININE 0.8 mg/dL (0.5-1.3); MAGNESIUM 1.9 mg/dL (1.80-2.40); POTASSIUM 4.2 mmol/L (3.5-5.1)
[2024-08-19] MEDS: ENOXAPARIN SODIUM 40 MG/0.4 ML SYRINGE SQ SCH (08:45)
[2024-08-19] MEDS: FAMOTIDINE 20MG TAB PO SCH (08:45)
[2024-08-19] MEDS: ASPIRIN 81MG CHEW TAB PO SCH (08:45)
[2024-08-19] MEDS: hydrALAZine 20MG/ML VIAL IV PRN (09:00)
[2024-08-19] MEDS: acetaMINOPHEN 325 MG TAB PO PRN (12:52)
--- NOTE | 2024-08-19 13:40 | PN ---
[facility] PROGRESS NOTE Date of Service: Aug 19, 2024 Time of Service: 13:34 SUBJECTIVE: Mr. Ingram is a 43-year-old male that was seen and examined today on 08/19/2024. Patient is a good historian and personal health. Patient reports that he came to the emergency department with a chief complaint of chest pain. Onset was 2099. Location is to left pectoral area. Duration is constant. Character is described as pressure and tightness. There was no alleviating factors. Symptoms are aggravated with deep breaths. Patient denies any associated shortness of breath. Today in the emergency department CBC unremarkable, chemistry unremarkable, urinalysis unremarkable, urine toxicology unremarkable. Emergency room physician recommended that patient be admitted wit h a diagnosis of chest pain. Patient relates that he drinks 24 beers daily. 08/19/24 Patient was seen and examined at bedside. He is a frequent Flyer and has a history of chronic alcohol dependence and withdrawals and cocaine abuse and depression. He was brought to the ED with complaints of chest pain but ACS was ruled out. His vitals are blood pressure 142/97, pulse rate 78, respiratory rate 13, T-max 98.6, SpO2 98% on room air. Remarkable labs are BUN 5, glucose 153. He is complaining of chills, denies chest pain or shortness of breath or dizziness or palpitations or abdominal pain or nausea and vomitings. He is on CIWA protocol. We will monitor him closely for withdrawal symptoms. REVIEW OF SYSTEMS CONSTITUTIONAL: Denies fevers, chills, or night sweats. No unintentional weight loss reported. NEUROLOGICAL: Denies headache, amaurosis fugax, motor weakness, sensory deficit, vertigo/spinning sensation, gait abnormalities, or tremors. ENT: No hearing loss, otalgia, otorrhea, rhinitis, rhinorrhea, hoarseness, or sore throat. CARDIOVASCULAR: Denies any exertional angina, dyspnea on exertion, orthopnea, paroxysmal nocturnal dyspnea, palpitations, life-threatening arrhythmias, claudication. PULMONARY: Denies any shortness of breath, cough, phlegm/sputum, hemoptysis, pleuritic chest pain. SLEEP: Denies morning headaches, daytime somnolence or napping. Denies difficulty falling asleep, staying asleep, waking from sleep. Denies knowledge of snoring. GASTROINTESTINAL: Denies any type of dysphagia to either liquids or solids. Denies nausea, vomiting, pyrosis, early satiety, abdominal pain, diarrhea, constipation, or changes in stool consistency or caliber. Denies coffee-ground e mesis, hematemesis, hematochezia, or melanotic stools. GENITOURINARY: Denies frequency, urgency, nocturia, hematuria or incontinence (Storage/Irritative symptoms.) Low urinary stream, straining to void, urinary intermittency or hesitancy, splitting of the voiding stream, terminal dribbling. ENDOCRINOLOGIC: Denies polyuria, polydipsia, polyphagia or heat/cold intolerances. HEMATOLOGIC: Denies thrombophilia/previous clots, or coagulopathy/bleeding disorders. ONCOLOGIC: Denies personal history of malignancy. DERMATOLOGIC: Denies rashes or pruritus. PSYCHIATRIC: Denies any suicidal or homicidal ideation. Denies hallucinations. PHYSICAL EXAM GENERAL APPEARANCE: The patient is awake, alert, and oriented, in no acute cardiopulmonary distress. NEUROLOGICAL: Cranial nerves II-XII grossly intact. Motor is 5/5 in bilateral upper and lower extremities proximal to distal. No sensory deficits. HEENT: Face is symmetric. Pupils are equal and reactive. Extraocular movements are intact. NECK: Supple. No JVD. No thyromegaly. No submental, submandibular, pre-/posta uricular, occipital or supraclavicular lymphadenopathy. CHEST: Normal chest expansion. No Telemetry. LUNGS: Absence of any rales, rhonchi or any wheezing. CARDIOVASCULAR: Regular. S1 and S2 normal. No appreciable rubs, murmurs or gallops. ABDOMEN: Soft, nontender, and nondistended. There is no rebound, voluntary guarding, or rigidity. : Deferred. No Sutherland. EXTREMITIES: Non-edematous and not cyanotic. No clubbing. Good capillary refill. SKIN: No skin breakdown. Vital Signs (last 8hr) Date Time Temp Pulse Resp B/P (MAP) Pulse Ox O2 Delivery O2 Flow Rate FiO2 08/19/24 12:43 98.6 78 13 142/97 98 Room Air* 0 21 08/19/24 10:03 97.5 78 12 147/86 97 Room Air* 0 21 08/19/24 06:47 65 15 129/90 96 Room Air* 0 21 08/19/24 06:42 18 N/A Room Air 21 LABS: Laboratory: Test 08/19/24 11:39 08/19/24 06:47 08/18/24 21:26 08/18/24 20:54 Range/Units Troponin I High Sensitivity 5 4-75 ng/L White Blood Count 5.6 # 4.8-10.8 K/uL Red Blood Count 4.85 4.50-6.20 MIL/uL Hemoglobin 14.2 14.0-18.0 g/dL Hematocrit 42.2 42-54 % Mean Corpuscular Volume 87.0 79-99 fL Mean Corpuscular Hemoglobin 29.3 27.0-33.0 pg Mean Corpuscular Hemoglobin Concent 33.6 32.0-36.0 g/dL Red Cell Distribution Width 13.7 11.0-15.5 % Platelet Count 280 130-400 K/uL Mean Platelet Volume 9.4 7.5-10.5 fL Immature Granulocyte % (Auto) 0.4 0-1 % Neutrophils (%) (Auto) 91.1 H 40.0-77.0 % Lymphocytes (%) (Auto) 7.4 L 21.0-51.0 % Monocytes (%) (Auto) 0.9 L 3.0-13.0 % Eosinophils (%) (Auto) 0.0 0.0-8.0 % Basophils (%) (Auto) 0.2 0.0-5.0 % Neutrophils # (Auto) 5.1 1.8-7.7 K/uL Lymphocytes # (Auto) 0.4 L 1.0-4.8 K/uL Monocytes # (Auto) 0.1 0.1-1.0 K/uL Eosinophils # (Auto) 0.00 0.00-0.70 K/uL Basophils # (Auto) 0.01 0.00-0.20 K/uL Absolute Immature Granulocyte (auto 0.02 0-1 K/uL Nucleated Red Blood Cells 0.0 0.0-0.19 % White Cell Morphology Comment See comments Sodium Level 142 136-145 mmol/L Potassium Level 4.2 3.5-5.1 mmol/L Chloride Level 103 101-111 mmol/L Carbon Dioxide Level 29 21-32 mmol/L Blood Urea Nitrogen 5 L 7-18 mg/dL Creatinine 0.8 0.5-1.3 mg/dL Glomerular Filtration Rate Calc 114 >90 mL/min Random Glucose 153 H 70-105 mg/dL Total Calcium 8.7 8.5-10.1 mg/dL Phosphorus Level 3.0 2.5-4.9 mg/dL Magnesium Level 1.90 1.80-2.40 mg/dL Troponin I < 0.05 0.00-0.05 ng/mL Urine Color COLORLESS YELLOW Urine Appearance CLEAR CLEAR Urine pH 7.0 5.0-8.0 Urine Specific [place] 1.004 1.001-1.031 Urine Protein NEGATIVE NEGATIVE mg/dL Urine Glucose (UA) NEGATIVE NEGATIVE mg/dL Urine Ketones NEGATIVE NEGATIVE mg/dL Urine Occult Blood NEGATIVE NEGATIVE Urine Nitrate NEGATIVE NEGATIVE Urine Bilirubin NEGATIVE NEGATIVE mg/dL Urine Urobilinogen 0.2 0.2-1.0 mg/dL Urine Leukocyte Esterase NEGATIVE NEGATIVE Anne/uL Urine RBC 0-1 0-1 /HPF Urine WBC 0-1 0-1 /HPF Urine Bacteria None None Seen /HPF Total Creatine Kinase 355 #H 21-232 U/L B-Type Natriuretic Peptide 6 0-100 pg/mL Urine Opiates Screen NEGATIVE NEGATIVE Urine Barbiturates Screen NEGATIVE NEGATIVE Urine Phencyclidine Screen NEGATIVE NEGATIVE Urine Amphetamines Screen NEGATIVE NEGATIVE Urine Benzodiazepines Screen NEGATIVE NEGATIVE Urine Cocaine Screen NEGATIVE NEGATIVE Urine Marijuana (THC) Screen NEGATIVE NEGATIVE Current Medications Medications (Trade) Dose Ordered Sig/Sahil Route PRN Reason Start Time Stop Time Status Last Admin Dose Admin Acetaminophen (TYLenol 325MG TAB) 650 mg Q6H PRN PO TEMPERATURE GREATER THAN 101.5 08/19/24 01:30 09/18/24 01:29 08/19/24 12:52 650 MG Albuterol Sulfate (Proventil 0.083% 2.5mg/3ml) 2.5MG Q4H PRN IH SHORTNESS OF BREATH 08/19/24 01:30 09/18/24 01:29 Aspirin (Aspirin 81mg Chew Tab) 81 mg DAILY PO 08/19/24 09:00 09/18/24 08:59 08/19/24 08:45 81 MG Chlordiazepoxide HCl (LIBrium 25 MG CAP) 25 mg Q8H PO 08/19/24 01:00 08/26/24 00:59 08/19/24 08:44 25 MG Enoxaparin Sodium (Lovenox) 40 mg DAILY SQ 08/19/24 09:00 09/18/24 08:59 08/19/24 08:45 40 MG Famotidine (Pepcid 20mg Tab) 20 mg DAILY PO 08/19/24 09:00 09/18/24 08:59 08/19/24 08:45 20 MG Hydralazine HCl (APRESOLine 20MG INJ) 10 mg Q6H PRN IV For:SBP above 160;DBP above 90 08/19/24 01:30 09/18/24 01:29 Lorazepam (AtiVAN) 2 mg Q4H PRN IVP ALCOHOL WITHDRAWAL PROTOCOL 08/19/24 01:00 08/26/24 00:59 Magnesium Sulfate 50 ml @ 0 mls/hr PROTOCOL PRN IV h 08/19/24 01:30 09/18/24 01:29 Morphine Sulfate (morPHINE 4MG SYG) 4 mg Q4H PRN IVP SEVERE PAIN (7-10) 08/19/24 01:30 08/26/24 01:29 Nitroglycerin (Nitroglycerin 1gm Oint) 0.5 inch Q8H TD 08/19/24 01:30 09/18/24 01:29 08/19/24 09:15 0.5 INCH Ondansetron HCl (zoFRAN 4MG INJ) 4 mg Q6H PRN IV NAUSEA/VOMITING 08/19/24 01:30 09/18/24 01:29 Pharmacy Profile Note (Pharmacy Communication) 1 each PROTOCOL PRN MISC ETOH Withdrawal Score changes 08/19/24 01:00 08/26/24 00:59 Potassium Chloride 100 ml @ 100 mls/hr AD PRN IV POTASSIUM PROTOCOL 08/19/24 01:30 09/18/24 01:29 Potassium Chloride (K-Dur/Klor-Con 20meq) 20 meq AD PRN PO POTASSIUM PROTOCOL 08/19/24 01:30 09/18/24 01:29 Potassium Chloride (KCl 10% Elixir 20meq/15ml) 20 meq AD PRN PO POTASSIUM PROTOCOL 08/19/24 01:30 09/18/24 01:29 Thiamine HCl 100 mg/Folic Acid 1 mg/Multivitamins/ Minerals 10 ml/ Sodium Chloride 1,011.2 ml @ 100 mls/ hr Q24H IV 08/19/24 01:00 08/21/24 11:07 08/19/24 01:00 100 MLS/HR DIAGNOSTICS / RADIOLOGY: REASON: CHEST PAIN ORDERING PHYSICIAN: KEITH BARBER MD PROCEDURE: CXR1VW - CHEST 1VW PORTABLE CHEST RADIOGRAPH INDICATION: CHEST PAIN COMPARISON: 03/13/2024 FINDINGS: Heart size is normal. The pulmonary vascularity and dario appear normal. No abnormal pulmonary parenchymal opacity or consolidation identified. No significant pleural effusion noted. No pneumothorax detected. IMPRESSION: No radiographic evidence for any acute cardiopulmonary process. ASSESSMENT: Chest pain, POA Alcohol dependence, POA Polysubstance abuse, POA] PLAN: [. Admit patient to medical floor as inpatient status. Place patient on telemetry monitoring. Administer aspirin 162 mg by mouth times 1 dose Continue aspirin 81 mg by mouth once daily Nitropaste 0.5 inches anterior chest wall every 8 hours Trend troponin every 6 hours x 3 sets Supplemental oxygen to maintain O2 saturation greater than 92% Consult cardiology if any elevation in troponin or troponin uptrending Counseled patient on alcohol cessation. Librium 25 mg by mouth every 8 hours As needed Ativan for alcohol withdrawal 1 mg every 4 hours Use CIWA-AR assessment tool Document EtOH withdrawal score Assess the need for seizure and aspiration precautions Consult patient on cocaine cessation. Consult patient on marijuana cessation. GI prophylaxis, famotidine DVT prophylaxis, Lovenox ATTESTATION BY PHYSICIAN I have seen and examined the patient. I reviewed the documentation, medical decision making, and treatment plan as noted by the resident provider above. I agree with the findings and plan of care. Patrick Chatman MD, NIHITHA MD Aug 19, 2024 13:40
[2024-08-19 18:15] VITALS: PULSE 91; RESP 18; O2SAT 97
--- NOTE | 2024-08-19 19:40 | NUR ---
PT CARE ASSUMED AT THIS TIME
[2024-08-20] VITALS (8 sets, daily range): BP systolic 129–134; BP diastolic 84–86; PULSE 67–80; RESP 18–21; TEMP 97.6–97.9; O2SAT 95–100
[2024-08-20 05:49] LABS: BASOPHILS # (AUTO) 0.03 K/uL (0.00-0.20); BASOPHILS % (AUTO) 0.4 % (0.0-5.0); EOSINOPHILS # (AUTO) 0.04 K/uL (0.00-0.70); EOSINOPHILS % (AUTO) 0.5 % (0.0-8.0); HEMATOCRIT 37.3 % (42-54); IMMATURE GRANULOCYTE ABSOLUTE 0.02 K/uL (0-1); LYMPHOCYTES % (AUTO) 24.1 % (21.0-51.0); MEAN CORPUSCULAR HEMOGLOBIN 29.4 pg (27.0-33.0); MEAN CORPUSCULAR VOLUME 86.3 fL (79-99); MONOCYTES # (AUTO) 0.4 K/uL (0.1-1.0); MONOCYTES % (AUTO) 5.2 % (3.0-13.0); NEUTROPHILS # (AUTO) 5.7 K/uL (1.8-7.7); NEUTROPHILS % (AUTO) 69.6 % (40.0-77.0); PLATELET COUNT (AUTO) 236 K/uL (130-400); RED BLOOD CELL COUNT(AUTO) 4.32 MIL/uL (4.50-6.20); RED CELL DISTRIBUTION WIDTH 13.8 % (11.0-15.5); WHITE BLOOD COUNT (AUTO) 8.2 K/uL (4.8-10.8)
[2024-08-20 05:57] LABS: POTASSIUM 3.2 mmol/L (3.5-5.1)
--- NOTE | 2024-08-20 07:10 | NUR ---
REPORT GIVEN TO JOHN CORONA AT THIS TIME
--- NOTE | 2024-08-20 15:01 | PN ---
[facility] PROGRESS NOTE Date of Service: Aug 20, 2024 Time of Service: 14:55 SUBJECTIVE: Mr. Ingram is a 43-year-old male that was seen and examined today on 08/19/2024. Patient is a good historian and personal health. Patient reports that he came to the emergency department with a chief complaint of chest pain. Onset was 2099. Location is to left pectoral area. Duration is constant. Character is described as pressure and tightness. There was no alleviating factors. Symptoms are aggravated with deep breaths. Patient denies any associated shortness of breath. Today in the emergency department CBC unremarkable, chemistry unremarkable, urinalysis unremarkable, urine toxicology unremarkable. Emergency room physician recommended that patient be admitted wi th a diagnosis of chest pain. Patient relates that he drinks 24 beers daily. 08/19/24 Patient was seen and examined at bedside. He is a frequent Flyer and has a history of chronic alcohol dependence and withdrawals and cocaine abuse and depression. He was brought to the ED with complaints of chest pain but ACS was ruled out. His vitals are blood pressure 142/97, pulse rate 78, respiratory rate 13, T-max 98.6, SpO2 98% on room air. Remarkable labs are BUN 5, glucose 153. He is complaining of chills, denies chest pain or shortness of breath or dizziness or palpitations or abdominal pain or nausea and vomitings. He is on CIWA protocol. We will monitor him closely for withdrawal symptoms. 08/20/24 Patient was seen and examined at bedside. He is alert, awake and oriented to time, place & person. His vitals are blood pressure 135/96, pulse rate 63, respiratory rate 18, T-max 97.7, SpO2 97% on room air. Notable labs are potassium 3.2, phosphorus 8.1. His current CIWA score is 11 points, complains of mild nausea and headache , tremors with arms extended, and paroxysmal sweats. He is anxious and agitated, has mild itching, visual disturbances but no auditory disturbances. We will continue with CIWA protocol and monitor him closely. His urine toxicology was negative. REVIEW OF SYSTEMS CONSTITUTIONAL: Denies fevers, chills, or night sweats. No unintentional weight loss reported. NEUROLOGICAL: Denies headache, amaurosis fugax, motor weakness, sensory deficit, vertigo/spinning sensation, gait abnormalities, or tremors. ENT: No hearing loss, otalgia, otorrhea, rhinitis, rhinorrhea, hoarseness, or sore throat. CARDIOVASCULAR: Denies any exertional angina, dyspnea on exertion, orthopnea, paroxysmal nocturnal dyspnea, palpitations, life-threatening arrhythmias, claudication. PULMONARY: Denies any shortness of breath, cough, phlegm/sputum, hemoptysis, pleuritic chest pain. SLEEP: Denies morning headaches, daytime somnolence or napping. Denies difficulty falling asleep, staying asleep, waking from sleep. Denies knowledge of snoring. GASTROINTESTINAL: Denies any type of dysphagia to either liquids or solids. Denies nausea, vomiting, pyrosis, early satiety, abdominal pain, diarrhea, constipation, or changes in stool consistency or caliber. Denies coffee-ground emesis, hematemesis, hematochezia, or melanotic stools. GENITOURINARY: Denies frequency, urgency, nocturia, hematuria or incontinence (Storage/Irritative symptoms.) Low urinary stream, straining to void, urinary intermittency or hesitancy, splitting of the voiding stream, terminal dribbling. ENDOCRINOLOGIC: Denies polyuria, polydipsia, polyphagia or heat/cold intolerances. HEMATOLOGIC: Denies thrombophilia/previous clots, or coagulopathy/bleeding disorders. ONCOLOGIC: Denies personal history of malignancy. DERMATOLOGIC: Denies rashes or pruritus. PSYCHIATRIC: Denies any suicidal or homicidal ideation. Denies hallucinations. PHYSICAL EXAM GENERAL APPEARANCE: The patient is awake, alert, and oriented, in no acute c ardiopulmonary distress. NEUROLOGICAL: Cranial nerves II-XII grossly intact. Motor is 5/5 in bilateral upper and lower extremities proximal to distal. No sensory deficits. HEENT: Face is symmetric. Pupils are equal and reactive. Extraocular movements are intact. NECK: Supple. No JVD. No thyromegaly. No submental, submandibular, pre- /postauricular, occipital or supraclavicular lymphadenopathy. CHEST: Normal chest expansion. No Telemetry. LUNGS: Absence of any rales, rhonchi or any wheezing. CARDIOVASCULAR: Regular. S1 and S2 normal. No appreciable rubs, murmurs or gallops. ABDOMEN: Soft, nontender, and nondistended. There is no rebound, voluntary guarding, or rigidity. : Deferred. No [place]. EXTREMITIES: Non-edematous and not cyanotic. No clubbing. Good capillary refill. SKIN: No skin breakdown. Vital Signs (last 8hr) Date Time Temp Pulse Resp B/P (MAP) Pulse Ox O2 Delivery O2 Flow Rate FiO2 08/20/24 12:00 97.7 76 21 100 Room Air 08/20/24 11:33 100 Room Air* 0 21 08/20/24 08:22 97.7 63 18 135/96 97 Room Air* 0 21 08/20/24 07:48 68 18 N/A Room Air 21 LABS: Laboratory: Test 08/20/24 05:22 08/19/24 16:34 08/19/24 06:47 08/18/24 21:26 Range/Units White Blood Count 8.2 # 4.8-10.8 K/uL Red Blood Count 4.32 L 4.50-6.20 MIL/uL Hemoglobin 12.7 L 14.0-18.0 g/dL Hematocrit 37.3 L 42-54 % Mean Corpuscular Volume 86.3 79-99 fL Mean Corpuscular Hemoglobin 29.4 27.0-33.0 pg Mean Corpuscular Hemoglobin Concent 34.0 32.0-36.0 g/dL Red Cell Distribution Width 13.8 11.0-15.5 % Platelet Count 236 130-400 K/uL Mean Platelet Volume 9.7 7.5-10.5 fL Immature Granulocyte % (Auto) 0.2 0-1 % Neutrophils (%) (Auto) 69.6 40.0-77.0 % Lymphocytes (%) (Auto) 24.1 21.0-51.0 % Monocytes (%) (Auto) 5.2 3.0-13.0 % Eosinophils (%) (Auto) 0.5 0.0-8.0 % Basophils (%) (Auto) 0.4 0.0-5.0 % Neutrophils # (Auto) 5.7 1.8-7.7 K/uL Lymphocytes # (Auto) 2.0 1.0-4.8 K/uL Monocytes # (Auto) 0.4 0.1-1.0 K/uL Eosinophils # (Auto) 0.04 0.00-0.70 K/uL Basophils # (Auto) 0.03 0.00-0.20 K/uL Absolute Immature Granulocyte (auto 0.02 0-1 K/uL Nucleated Red Blood Cells 0.0 0.0-0.19 % Sodium Level 145 136-145 mmol/L Potassium Level 3.2 L 3.5-5.1 mmol/L Chloride Level 107 101-111 mmol/L Carbon Dioxide Level 28 21-32 mmol/L Blood Urea Nitrogen 13 7-18 mg/dL Creatinine 1.0 0.5-1.3 mg/dL Glomerular Filtration Rate Calc 97 >90 mL/min Random Glucose 114 H 70-105 mg/dL Total Calcium 8.1 L 8.5-10.1 mg/dL Troponin I High Sensitivity 6 4-75 ng/L White Cell Morphology Comment See comments Phosphorus Level 3.0 2.5-4.9 mg/dL Magnesium Level 1.90 1.80-2.40 mg/dL Troponin I < 0.05 0.00-0.05 ng/mL Test 08/18/24 20:54 Range/Units Urine Color COLORLESS YELLOW Urine Appearance CLEAR CLEAR Urine pH 7.0 5.0-8.0 Urine Specific [place] 1.004 1.001-1.031 Urine Protein NEGATIVE NEGATIVE mg/dL Urine Glucose (UA) NEGATIVE NEGATIVE mg/dL Urine Ketones NEGATIVE NEGATIVE mg/dL Urine Occult Blood NEGATIVE NEGATIVE Urine Nitrate NEGATIVE NEGATIVE Urine Bilirubin NEGATIVE NEGATIVE mg/dL Urine Urobilinogen 0.2 0.2-1.0 mg/dL Urine Leukocyte Esterase NEGATIVE NEGATIVE Anne/uL Urine RBC 0-1 0-1 /HPF Urine WBC 0-1 0-1 /HPF Urine Bacteria None None Seen /HPF Total Creatine Kinase 355 #H 21-232 U/L B-Type Natriuretic Peptide 6 0-100 pg/mL Urine Opiates Screen NEGATIVE NEGATIVE Urine Barbiturates Screen NEGATIVE NEGATIVE Urine Phencyclidine Screen NEGATIVE NEGATIVE Urine Amphetamines Screen NEGATIVE NEGATIVE Urine Benzodiazepines Screen NEGATIVE NEGATIVE Urine Cocaine Screen NEGATIVE NEGATIVE Urine Marijuana (THC) Screen NEGATIVE NEGATIVE Current Medications Medications (Trade) Dose Ordered Sig/Sahil Route PRN Reason Start Time Stop Time Status Last Admin Dose Admin Acetaminophen (TYLenol 325MG TAB) 650 mg Q6H PRN PO TEMPERATURE GREATER THAN 101.5 08/19/24 01:30 09/18/24 01:29 08/19/24 12:52 650 MG Albuterol Sulfate (Proventil 0.083% 2.5mg/3ml) 2.5MG Q4H PRN IH SHORTNESS OF BREATH 08/19/24 01:30 09/18/24 01:29 Aspirin (Aspirin 81mg Chew Tab) 81 mg DAILY PO 08/19/24 09:00 09/18/24 08:59 08/20/24 09:19 81 MG Chlordiazepoxide HCl (LIBrium 25 MG CAP) 25 mg Q8H PO 08/19/24 01:00 08/26/24 00:59 08/20/24 09:19 25 MG Enoxaparin Sodium (Lovenox) 40 mg DAILY SQ 08/19/24 09:00 09/18/24 08:59 08/20/24 09:21 40 MG Famotidine (Pepcid 20mg Tab) 20 mg DAILY PO 08/19/24 09:00 09/18/24 08:59 08/20/24 09:19 20 MG Hydralazine HCl (APRESOLine 20MG INJ) 10 mg Q6H PRN IV For:SBP above 160;DBP above 90 08/19/24 01:30 09/18/24 01:29 Lorazepam (AtiVAN) 2 mg Q4H PRN IVP ALCOHOL WITHDRAWAL PROTOCOL 08/19/24 01:00 08/26/24 00:59 Magnesium Sulfate 50 ml @ 0 mls/hr PROTOCOL PRN IV h 08/19/24 01:30 09/18/24 01:29 Morphine Sulfate (morPHINE 4MG SYG) 4 mg Q4H PRN IVP SEVERE PAIN (7-10) 08/19/24 01:30 08/26/24 01:29 Nitroglycerin (Nitroglycerin 1gm Oint) 0.5 inch Q8H TD 08/19/24 01:30 09/18/24 01:29 08/20/24 09:23 0.5 INCH Ondansetron HCl (zoFRAN 4MG INJ) 4 mg Q6H PRN IV NAUSEA/VOMITING 08/19/24 01:30 09/18/24 01:29 Pharmacy Profile Note (Pharmacy Communication) 1 each PROTOCOL PRN MISC ETOH Withdrawal Score changes 08/19/24 01:00 08/26/24 00:59 Potassium Chloride 100 ml @ 100 mls/hr AD PRN IV POTASSIUM PROTOCOL 08/19/24 01:30 09/18/24 01:29 Potassium Chloride (K-Dur/Klor-Con 20meq) 20 meq AD PRN PO POTASSIUM PROTOCOL 08/19/24 01:30 09/18/24 01:29 Potassium Chloride (KCl 10% Elixir 20meq/15ml) 20 meq AD PRN PO POTASSIUM PROTOCOL 08/19/24 01:30 09/18/24 01:29 Thiamine HCl 100 mg/Folic Acid 1 mg/Multivitamins/ Minerals 10 ml/ Sodium Chloride 1,011.2 ml @ 100 mls/ hr Q24H IV 08/19/24 01:00 08/21/24 11:07 08/20/24 01:00 100 MLS/HR DIAGNOSTICS / RADIOLOGY: [ ] ASSESSMENT: Chest pain, POA Alcohol dependence, POA Polysubstance abuse, POA] PLAN: [. Continue CIWA protocol and document score Place patient on telemetry monitoring. Administer aspirin 162 mg by mouth times 1 dose Continue aspirin 81 mg by mouth once daily Nitropaste 0.5 inches anterior chest wall every 8 hours Trend troponin every 6 hours x 3 sets Supplemental oxygen to maintain O2 saturation greater than 92% Consult cardiology if any elevation in troponin or troponin uptrending Counseled patient on alcohol cessation. Librium 25 mg by mouth every 8 hours As needed Ativan for alcohol withdrawal 1 mg every 4 hours Assess the need for seizure and aspiration precautions Consult patient on cocaine cessation. Consult patient on marijuana cessation. GI prophylaxis, famotidine DVT prophylaxis, Lovenox ATTESTATION BY PHYSICIAN I have seen and examined the patient. I reviewed the documentation, medical decision making, and treatment plan as noted by the resident provider above. I agree with the findings and plan of care. Patrick Chatman MD, NIHITHA MD Aug 20, 2024 15:01
[2024-08-20] MEDS: PoTASSium chloRIDE 20MEQ ER 20 MEQ ERTAB PO PRN (23:18)
[2024-08-21] VITALS (9 sets, daily range): BP systolic 118–138; BP diastolic 68–96; PULSE 59–86; RESP 17–22; TEMP 97.5–98; O2SAT 95–99
[2024-08-21 05:17] LABS: BASOPHILS # (AUTO) 0.03 K/uL (0.00-0.20); BASOPHILS % (AUTO) 0.5 % (0.0-5.0); EOSINOPHILS % (AUTO) 1.7 % (0.0-8.0); HEMATOCRIT 42.6 % (42-54); IMMATURE GRANULOCYTE ABSOLUTE 0.05 K/uL (0-1); LYMPHOCYTES # (AUTO) 1.7 K/uL (1.0-4.8); LYMPHOCYTES % (AUTO) 30.1 % (21.0-51.0); MEAN CORPUSCULAR HEMOGLOBIN 29.6 pg (27.0-33.0); MEAN CORPUSCULAR HGB CONC 33.8 g/dL (32.0-36.0); MEAN CORPUSCULAR VOLUME 87.5 fL (79-99); MONOCYTES # (AUTO) 0.3 K/uL (0.1-1.0); MONOCYTES % (AUTO) 5.2 % (3.0-13.0); NEUTROPHILS # (AUTO) 3.6 K/uL (1.8-7.7); NEUTROPHILS % (AUTO) 61.6 % (40.0-77.0); PLATELET COUNT (AUTO) 211 K/uL (130-400); RED BLOOD CELL COUNT(AUTO) 4.87 MIL/uL (4.50-6.20); RED CELL DISTRIBUTION WIDTH 13.8 % (11.0-15.5); WHITE BLOOD COUNT (AUTO) 5.8 K/uL (4.8-10.8)
[2024-08-21 05:51] LABS: ALBUMIN 3.4 g/dL (3.5-5.0); BILIRUBIN,DIRECT 0.1 mg/dL (0.0-0.3); BILIRUBIN,TOTAL 0.5 mg/dL (0.2-1.0); CREATININE 0.9 mg/dL (0.5-1.3); PHOSPHORUS 4.2 mg/dL (2.5-4.9); TOTAL PROTEIN, SERUM 7.1 g/dL (6.0-8.3)
--- NOTE | 2024-08-21 10:24 | NUR ---
DCP: HOME Sw met with pt who lives with his mother and stepfather Rosalio Tamayo [phone]. 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 Pt independent of all his ADLS< uses no DME or in home care services. Pt has no PCP, community resources given. Uses [facility] for rx. Pt denies need for SNF or Referral, will dc home with family Addendum: 08/21/24 at 1026 by PRIMO ASCENCIO Amended: Links added.
--- NOTE | 2024-08-21 15:09 | PN ---
[facility] PROGRESS NOTE Date of Service: Aug 21, 2024 Time of Service: 15:05 SUBJECTIVE: Mr. Ingram is a 43-year-old male that was seen and examined today on 08/19/2024. Patient is a good historian and personal health. Patient reports that he came to the emergency department with a chief complaint of chest pain. Onset was 2099. Location is to left pectoral area. Duration is constant. Character is described as pressure and tightness. There was no alleviating factors. Symptoms are aggravated with deep breaths. Patient denies any associated shortness of breath. Today in the emergency department CBC unremarkable, chemistry unremarkable, urinalysis unremarkable, urine toxicology unremarkable. Emergency room physician recommended that patient be admitted wi th a diagnosis of chest pain. Patient relates that he drinks 24 beers daily. 08/19/24 Patient was seen and examined at bedside. He is a frequent Flyer and has a history of chronic alcohol dependence and withdrawals and cocaine abuse and depression. He was brought to the ED with complaints of chest pain but ACS was ruled out. His vitals are blood pressure 142/97, pulse rate 78, respiratory rate 13, T-max 98.6, SpO2 98% on room air. Remarkable labs are BUN 5, glucose 153. He is complaining of chills, denies chest pain or shortness of breath or dizziness or palpitations or abdominal pain or nausea and vomitings. He is on CIWA protocol. We will monitor him closely for withdrawal symptoms. 08/20/24 Patient was seen and examined at bedside. He is alert, awake and oriented to time, place & person. His vitals are blood pressure 135/96, pulse rate 63, respiratory rate 18, T-max 97.7, SpO2 97% on room air. Notable labs are potassium 3.2, phosphorus 8.1. His current CIWA score is 11 points, complains of mild nausea and headache , tremors with arms extended, and paroxysmal sweats. He is anxious and agitated, has mild itching, visual disturbances but no auditory disturbances. We will continue with CIWA protocol and monitor him closely. His urine toxicology was negative. 08/21/24 Patient was seen and examined at bedside. He is alert, awake and oriented to time, place & person. He complains of generalized abdominal pain, intermittent, denies nausea or vomitings. His vitals are blood pressure 134/72, pulse rate 62, respiratory rate 18, SpO2 95% on room air, T-max 97.5. He still complains of a generalized headache, tremors with arms extended and paroxysmal sweats. He was given Ativan at 6 in the morning and his symptoms slowly improved but still co mplains of headache and sweats. Continue with detoxification. Remarkable labs are AST 65, ALT 99, albumin 3.4 REVIEW OF SYSTEMS CONSTITUTIONAL: Denies fevers, chills, or night sweats. No unintentional weight loss reported. NEUROLOGICAL: Denies headache, amaurosis fugax, motor weakness, sensory deficit, vertigo/spinning sensation, gait abnormalities, or tremors. ENT: No hearing loss, otalgia, otorrhea, rhinitis, rhinorrhea, hoarseness, or sore throat. CARDIOVASCULAR: Denies any exertional angina, dyspnea on exertion, orthopnea, paroxysmal nocturnal dyspnea, palpitations, life-threatening arrhythmias, claudication. PULMONARY: Denies any shortness of breath, cough, phlegm/sputum, hemoptysis, pleuritic chest pain. SLEEP: Denies morning headaches, daytime somnolence or napping. Denies difficulty falling asleep, staying asleep, waking from sleep. Denies knowledge of snoring. GASTROINTESTINAL: Denies any type of dysphagia to either liquids or solids. Denies nausea, vomiting, pyrosis, early satiety, abdominal pain, diarrhea, constipation, or changes in stool consistency or caliber. Denies coffee-ground emesis, hematemesis, hematochezia, or melanotic stools. GENITOURINARY: Denies frequency, urgency, nocturia, hematuria or incontinence (Storage/Irritative symptoms.) Low urinary stream, straining to void, urinary intermittency or hesitancy, splitting of the voiding stream, terminal dribbling. ENDOCRINOLOGIC: Denies polyuria, polydipsia, polyphagia or heat/cold intolerances. HEMATOLOGIC: Denies thrombophilia/previous clots, or coagulopathy/bleeding disorders. ONCOLOGIC: Denies personal history of malignancy. DERMATOLOGIC: Denies rashes or pruritus. PSYCHIATRIC: Denies any suicidal or homicidal ideation. Denies hallucinations. PHYSICAL EXAM GENERAL APPEARANCE: The patient is awake, alert, and oriented, in no acute cardiopulmonary distress. NEUROLOGICAL: Cranial nerves II-XII grossly intact. Motor is 5/5 in bilateral upper and lower extremities proximal to distal. No sensory deficits. HEENT: Face is symmetric. Pupils are equal and reactive. Extraocular movements are intact. NECK: Supple. No JVD. No thyromegaly. No submental, submandibular, pre- /postauricular, occipital or supraclavicular lymphadenopathy. CHEST: Normal chest expansion. No Telemetry. LUNGS: Absence of any rales, rhonchi or any wheezing. CARDIOVASCULAR: Regular. S1 and S2 normal. No appreciable rubs, murmurs or gallops. ABDOMEN: Soft, nontender, and nondistended. There is no rebound, voluntary guarding, or rigidity. : Deferred. No [place]. EXTREMITIES: Non-edematous and not cyanotic. No clubbing. Good capillary refill. SKIN: No skin breakdown. Vital Signs (last 8hr) Date Time Temp Pulse Resp B/P (MAP) Pulse Ox O2 Delivery O2 Flow Rate FiO2 08/21/24 11:56 97.9 74 17 118/78 99 08/21/24 08:40 95 Room Air* 0 21 08/21/24 08:01 97.5 62 18 134/72 95 LABS: Laboratory: Test 08/21/24 05:04 08/19/24 16:34 Range/Units White Blood Count 5.8 # 4.8-10.8 K/uL Red Blood Count 4.87 4.50-6.20 MIL/uL Hemoglobin 14.4 14.0-18.0 g/dL Hematocrit 42.6 42-54 % Mean Corpuscular Volume 87.5 79-99 fL Mean Corpuscular Hemoglobin 29.6 27.0-33.0 pg Mean Corpuscular Hemoglobin Concent 33.8 32.0-36.0 g/dL Red Cell Distribution Width 13.8 11.0-15.5 % Platelet Count 211 130-400 K/uL Mean Platelet Volume 9.1 7.5-10.5 fL Immature Granulocyte % (Auto) 0.9 0-1 % Neutrophils (%) (Auto) 61.6 40.0-77.0 % Lymphocytes (%) (Auto) 30.1 21.0-51.0 % Monocytes (%) (Auto) 5.2 3.0-13.0 % Eosinophils (%) (Auto) 1.7 0.0-8.0 % Basophils (%) (Auto) 0.5 0.0-5.0 % Neutrophils # (Auto) 3.6 1.8-7.7 K/uL Lymphocytes # (Auto) 1.7 1.0-4.8 K/uL Monocytes # (Auto) 0.3 0.1-1.0 K/uL Eosinophils # (Auto) 0.10 0.00-0.70 K/uL Basophils # (Auto) 0.03 0.00-0.20 K/uL Absolute Immature Granulocyte (auto 0.05 0-1 K/uL Nucleated Red Blood Cells 0.0 0.0-0.19 % Sodium Level 144 136-145 mmol/L Potassium Level 4.0 3.5-5.1 mmol/L Chloride Level 108 101-111 mmol/L Carbon Dioxide Level 28 21-32 mmol/L Blood Urea Nitrogen 10 7-18 mg/dL Creatinine 0.9 0.5-1.3 mg/dL Glomerular Filtration Rate Calc 110 >90 mL/min Random Glucose 94 70-105 mg/dL Total Calcium 8.6 8.5-10.1 mg/dL Phosphorus Level 4.2 2.5-4.9 mg/dL Total Bilirubin 0.5 0.2-1.0 mg/dL Direct Bilirubin 0.1 0.0-0.3 mg/dL Aspartate Amino Transf (AST/SGOT) 65 H 10-37 U/L Alanine Aminotransferase (ALT/SGPT) 99 H 12-78 U/L Alkaline Phosphatase 69 50-136 U/L Total Protein 7.1 6.0-8.3 g/dL Albumin 3.4 L 3.5-5.0 g/dL Troponin I High Sensitivity 6 4-75 ng/L Current Medications Medications (Trade) Dose Ordered Sig/Sahil Route PRN Reason Start Time Stop Time Status Last Admin Dose Admin Acetaminophen (TYLenol 325MG TAB) 650 mg Q6H PRN PO TEMPERATURE GREATER THAN 101.5 08/19/24 01:30 09/18/24 01:29 08/19/24 12:52 650 MG Albuterol Sulfate (Proventil 0.083% 2.5mg/3ml) 2.5MG Q4H PRN IH SHORTNESS OF BREATH 08/19/24 01:30 09/18/24 01:29 Aspirin (Aspirin 81mg Chew Tab) 81 mg DAILY PO 08/19/24 09:00 09/18/24 08:59 08/21/24 08:40 81 MG Chlordiazepoxide HCl (LIBrium 25 MG CAP) 25 mg Q8H PO 08/19/24 01:00 08/26/24 00:59 08/21/24 08:40 25 MG Enoxaparin Sodium (Lovenox) 40 mg DAILY SQ 08/19/24 09:00 09/18/24 08:59 08/21/24 08:41 40 MG Famotidine (Pepcid 20mg Tab) 20 mg DAILY PO 08/19/24 09:00 09/18/24 08:59 08/21/24 08:40 20 MG Hydralazine HCl (APRESOLine 20MG INJ) 10 mg Q6H PRN IV For:SBP above 160;DBP above 90 08/19/24 01:30 09/18/24 01:29 Lorazepam (AtiVAN) 2 mg Q4H PRN IVP ALCOHOL WITHDRAWAL PROTOCOL 08/19/24 01:00 08/26/24 00:59 Magnesium Sulfate 50 ml @ 0 mls/hr PROTOCOL PRN IV h 08/19/24 01:30 09/18/24 01:29 Morphine Sulfate (morPHINE 4MG SYG) 4 mg Q4H PRN IVP SEVERE PAIN (7-10) 08/19/24 01:30 08/26/24 01:29 Nitroglycerin (Nitroglycerin 1gm Oint) 0.5 inch Q8H TD 08/19/24 01:30 09/18/24 01:29 08/21/24 08:40 0.5 INCH Ondansetron HCl (zoFRAN 4MG INJ) 4 mg Q6H PRN IV NAUSEA/VOMITING 08/19/24 01:30 09/18/24 01:29 Pharmacy Profile Note (Pharmacy Communication) 1 each PROTOCOL PRN MISC ETOH Withdrawal Score changes 08/19/24 01:00 08/26/24 00:59 Potassium Chloride 100 ml @ 100 mls/hr AD PRN IV POTASSIUM PROTOCOL 08/19/24 01:30 09/18/24 01:29 Potassium Chloride (K-Dur/Klor-Con 20meq) 20 meq AD PRN PO POTASSIUM PROTOCOL 08/19/24 01:30 09/18/24 01:29 08/21/24 02:10 20 MEQ Potassium Chloride (KCl 10% Elixir 20meq/15ml) 20 meq AD PRN PO POTASSIUM PROTOCOL 08/19/24 01:30 09/18/24 01:29 Thiamine HCl 100 mg/Folic Acid 1 mg/Multivitamins/ Minerals 10 ml/ Sodium Chloride 1,011.2 ml @ 100 mls/ hr Q24H IV 08/19/24 01:00 08/21/24 11:07 DC 08/21/24 01:10 100 MLS/HR DIAGNOSTICS / RADIOLOGY: [ ] ASSESSMENT: Chest pain, POA Alcohol dependence, POA Polysubstance abuse, POA] PLAN: [. Continue CIWA protocol and document score Place patient on telemetry monitoring. Administer aspirin 162 mg by mouth times 1 dose Continue aspirin 81 mg by mouth once daily Nitropaste 0.5 inches anterior chest wall every 8 hours Trend troponin every 6 hours x 3 sets Supplemental oxygen to maintain O2 saturation greater than 92% Consult cardiology if any elevation in troponin or troponin uptrending Counseled patient on alcohol cessation. Librium 25 mg by mouth every 8 hours As needed Ativan for alcohol withdrawal 1 mg every 4 hours Assess the need for seizure and aspiration precautions Consult patient on cocaine cessation. Consult patient on marijuana cessation. GI prophylaxis, famotidine DVT prophylaxis, Lovenox ATTESTATION BY PHYSICIAN I have seen and examined the patient. I reviewed the documentation, medical decision making, and treatment plan as noted by the resident provider above. I agree with the findings and plan of care. Patrick Chatman MD, NIHITHA MD Aug 21, 2024 15:09
[2024-08-22 03:12] VITALS: BP 119/78; PULSE 59; RESP 20; TEMP 97.5
[2024-08-22 06:21] LABS: BASOPHILS # (AUTO) 0.03 K/uL (0.00-0.20); BASOPHILS % (AUTO) 0.4 % (0.0-5.0); EOSINOPHILS # (AUTO) 0.12 K/uL (0.00-0.70); EOSINOPHILS % (AUTO) 1.7 % (0.0-8.0); HEMATOCRIT 43.4 % (42-54); IMMATURE GRANULOCYTE ABSOLUTE 0.07 K/uL (0-1); LYMPHOCYTES # (AUTO) 1.7 K/uL (1.0-4.8); LYMPHOCYTES % (AUTO) 24.5 % (21.0-51.0); MEAN CORPUSCULAR HEMOGLOBIN 29.1 pg (27.0-33.0); MEAN CORPUSCULAR HGB CONC 33.6 g/dL (32.0-36.0); MEAN CORPUSCULAR VOLUME 86.5 fL (79-99); MONOCYTES # (AUTO) 0.4 K/uL (0.1-1.0); MONOCYTES % (AUTO) 5.3 % (3.0-13.0); NEUTROPHILS # (AUTO) 4.7 K/uL (1.8-7.7); NEUTROPHILS % (AUTO) 67.1 % (40.0-77.0); PLATELET COUNT (AUTO) 232 K/uL (130-400); RED BLOOD CELL COUNT(AUTO) 5.02 MIL/uL (4.50-6.20); RED CELL DISTRIBUTION WIDTH 13.7 % (11.0-15.5)
[2024-08-22 06:33] LABS: CREATININE 0.8 mg/dL (0.5-1.3); POTASSIUM 3.7 mmol/L (3.5-5.1)
[2024-08-22 07:29] VITALS: PULSE 77; RESP 18; O2SAT 98
[2024-08-22 07:31] VITALS: O2SAT 98
[2024-08-22 08:00] VITALS: BP 115/78; PULSE 68; RESP 18; TEMP 98.1
--- NOTE | 2024-08-22 11:50 | DS ---
Discharge Summary Hospital Course Summary: Mr. Sun is a 43-year-old male that was seen and examined on 08/19/2024, he came to the emergency department with a chief complaint of chest pain. Onset was 2100. Location is to left pectoral area. Duration is constant. Character is described as pressure and tightness. There was no alleviating factors. Symptoms are aggravated with deep breaths. Patient denies any associated shortness of breath. In the emergency department CBC unremarkable, chemistry unremarkable, urinalysis unremarkable, urine toxicology unremarkable. Emergency room physician recommended that patient be admitted with a diagnosis of chest pain. Patient relates that he drinks 24 beers daily. He is a frequent Flyer and has a history of chronic alcohol dependence and withdrawals and cocaine abuse and depression. He was complaining of mild nausea and headache , tremors with arms extended, and paroxysmal sweats. He is anxious and agitated, has mild itching, visual disturbances but no auditory disturbances. His urine toxicology was negative. Remarkable labs are AST 65, ALT 99, albumin 3.4. Today his symptoms have improved, he has no complaints, is ambulating well. He is hemodynamically stable, is blood pressure 115/78, pulse rate 68, respiratory rate 18, SpO2 91% on room air, T-max 98.1. Patient has been educated on severe withdrawal symptoms and to return to ED emergently if he develops severe tremors or confusion or disorientation or rapid heartbeat and he has been advised to follow up with the PCP in 2-3 days. We will advise him to continue on thiamine supplementation and has been advised to stop drinking alcohol. Procedure(s): Signed PATIENT: SIVA SUN MR#: [id number] : 1980 SEX: M AGE: 43 LOCATION: [facility] ORDER 46 STATUS: [facility] REPORT#: [id number] SERVICE 45 REASON: CHEST PAIN ORDERING PHYSICIAN: KEITH BARBER MD PROCEDURE: CXR1VW - CHEST 1VW PORTABLE CHEST RADIOGRAPH INDICATION: CHEST PAIN COMPARISON: 03/13/2024 FINDINGS: Heart size is normal. The pulmonary vascularity and dario appear normal. No abnormal pulmonary parenchymal opacity or consolidation identified. No significant pleural effusion noted. No pneumothorax detected. IMPRESSION: No radiographic evidence for any acute cardiopulmonary process. DICTATED BY: CLAUS MACKAY MD DATE: 08/18/242115 ELECTRONICALLY SIGNED BY: CLAUS MACKAY MD DATE: 08/18/242119 Assessment/Plan: ASSESSMENT: Chest pain, POA, non cardiac etiology, resolved Alcohol withdrawal syndrome, POA, resolving Alcohol dependence, POA Polysubstance abuse, POA] Discharge Instructions: ADMISSION DATE : 08/18/2024 DISCHARGE DATE: 08/22/2024 DISPOSITION : Home CONDITION : Stable [employer]ASTE [employer]LECTION DRIVER(S) : None FOLLOW UP APPOINTMENT(S) : f/u with PCP in one 2-3 days PROCEDURES: None IMAGING (S) : report attached to summary MICROBIOLOGY : None ACTIVITY : ad kuldip HOME MEDICATIONS : Continued Home Medications: Active Scripts Ipratropium/Albuterol Sulfate (Combivent Respimat Inhal [place]) 20 Mcg-100 Mcg/Actuation Aer.w.adap, 2 PUFF IH TID, #4 GM 0 Refills Prov:KEITH BARBER MD 08/18/24 Azithromycin (Zithromax) 500 Mg Tablet, 1 TAB PO DAILY for 5 Days, #5 TAB 0 Refills Prov:KEITH BARBER MD 08/18/24 Prednisone (Prednisone) 20 Mg Tablet, 1 TAB PO AD for 6 Days, #14 TAB 0 Refills TAKE 1 TAB BY MOUTH THREE TIMES PER DAY X3 DAYS, THEN TAKE 1 TAB BY MOUTH TWICE A DAY X2 DAYS, THEN TAKE 1 TAB BY MOUTH ONCE A DAY X1 DAY. Prov:KEITH BARBER MD 08/18/24 Thiamine HCl (Vitamin B-1) 100 Mg Tablet, 100 MG PO DAILY for 7 Days, #7 TAB Prov:CASIMIRO ASCENCIO NP 04/23/24 Reported Medications Omeprazole (Omeprazole) 20 Mg Capsule., 1 CAP PO DAILY for 30 Days, #30 CAP 0 Refills 04/21/24 Continued Medications: Ipratropium/Albuterol Sulfate (Combivent Respimat Inhal [place]) 20 Mcg-100 Mcg/Actuation Aer.w.adap 2 PUFF IH TID, #4 GM 0 Refills Omeprazole (Omeprazole) 20 Mg Capsule. 1 CAP PO DAILY for 30 Days, #30 CAP 0 Refills Thiamine HCl (Vitamin B-1) 100 Mg Tablet 100 MG PO DAILY for 7 Days, #7 TAB Discontinued Medications: Azithromycin (Zithromax) 500 Mg Tablet 1 TAB PO DAILY for 5 Days, #5 TAB 0 Refills Prednisone (Prednisone) 20 Mg Tablet 1 TAB PO AD for 6 Days, #14 TAB 0 Refills TAKE 1 TAB BY MOUTH THREE TIMES PER DAY X3 DAYS, THEN TAKE 1 TAB BY MOUTH TWICE A DAY X2 DAYS, THEN TAKE 1 TAB BY MOUTH ONCE A DAY X1 DAY. Time spent arranging discharge: 1-30 minutes ATTESTATION BY PHYSICIAN I have seen and examined the patient. I reviewed the documentation, medical decision making, and treatment plan as noted by the resident provider above. I agree with the findings and plan of care. Patrick Chatman MD, NIHITHA MD Aug 22, 2024 11:50
[2024-08-22 12:00] VITALS: BP 124/85; PULSE 68; RESP 19; TEMP 98.4
== END 2024-08-22 14:10 | disposition home or self-care (01) | DRG 313 ==
LOC: EDH 20:44 → EDHIP 08-19 00:39 → 3DH 08-20 11:33
PROVIDERS: ADMIT Internal Medicine; ATTEND Internal Medicine
DX: R07.89 Other chest pain (principal); F10.239 Alcohol dependence with withdrawal, unspecified; J44.0 Chronic obstructive pulmonary disease with (acute) lower respiratory infection; F02.83 Dementia in other diseases classified elsewhere, unspecified severity, with mood disturbance; F14.10 Cocaine abuse, uncomplicated; E78.5 Hyperlipidemia, unspecified; I25.10 Atherosclerotic heart disease of native coronary artery without angina pectoris; J20.8 Acute bronchitis due to other specified organisms; F32.A Depression, unspecified; K76.9 Liver disease, unspecified; E11.9 Type 2 diabetes mellitus without complications; E03.9 Hypothyroidism, unspecified; I10 Essential (primary) hypertension; G30.9 Alzheimer's disease, unspecified; Z86.73 Personal history of transient ischemic attack (TIA), and cerebral infarction without residual deficits; Z79.82 Long term (current) use of aspirin; Z51.5 Encounter for palliative care; Z79.899 Other long term (current) drug therapy
CPT/HCPCS: 36415; 71045; 80048; 80076; 80305; 81001; 82550; 83735; 83880; 84100; 84443; 84484; 85025; 93005; 94640; 96372; 96374; 99285; G0378; J0360; J1650; J2060; J2919; J3411; J3490; J7030

== ENCOUNTER 2025-01-19 13:59 | Emergency (ER) | payer OTHER ==
[~2025-01-19] VITALS: Ht 165.1 cm; Wt 89.2 kg
[~2025-01-19 13:59] MED LIST changes: +IPRA4AER IH
--- NOTE | 2025-01-19 14:08 | ERN ---
ED Note History of Present Illness Stated Complaint: N/V/D, ETOH WITHDRAW Chief Complaint: Nausea,Vomiting,Diarrhea Time Seen by MD: 14:05 Dictation: PATIENT IS A 44-YEAR-OLD MALE COMING IN TODAY WITH COMPLAINTS OF HAVING NAUSEA VOMITING AND NOT DRINKING ALCOHOL SINCE YESTERDAY. STATES HE WAS DOING MARIJUANA AND DID SOME COCAINE TWO DAYS AGO. NO FEVER NO CHILLS. NO PRIMARY CARE DOCTOR STATES HE ONLY USES [facility] FOR HIS MEDICAL PROVIDER. Allergies: Coded Allergies: No Known Drug Allergies (Verified Allergy, Unknown, 03/05/19) blueberry (Unverified Allergy, Unknown, 03/05/19) Home Meds Active Scripts Ipratropium/Albuterol Sulfate (Combivent Respimat Inhal [place]) 20 Mcg-100 Mcg/Actuation Aer.w.adap, 2 PUFF IH TID, #4 GM 0 Refills Prov:KEITH BARBER MD 08/18/24 Thiamine HCl (Vitamin B-1) 100 Mg Tablet, 100 MG PO DAILY for 7 Days, #7 TAB Prov:CASIMIRO ASCENCIO NP 04/23/24 Reported Medications Omeprazole (Omeprazole) 20 Mg Capsule.dr, 1 CAP PO DAILY for 30 Days, #30 CAP 0 Refills 04/21/24 Past Medical History Past Medical History: Alcoholism, Diabetes-Type II, High Cholesterol, Hypertension, Hypothyroid, Liver Disease Additional Past Medical Hx: chirrosis Surgical History: Other Surgical History Other: RT TESTICLE Family History: Negative Social History: Drugs, ETOH, Other RN Note Reviewed/Agreed w/PFSH: Yes Review of System Dictation CONSTITUTIONAL: NEGATIVE EXCEPT FOR HPI HEAD/FACE: NEGATIVE EXCEPT FOR HPI EENT: NEGATIVE EXCEPT FOR HPI RESPIRATORY: NEGATIVE EXCEPT FOR HPI GASTROINTESTINAL/ABDOMINAL: NEGATIVE EXCEPT FOR HPI NAUSEA VOMITING GENITOURINARY: NEGATIVE EXCEPT FOR HPI MUSCULOSKELETAL: NEGATIVE EXCEPT FOR HPI INTEGUMENTARY: NEGATIVE EXCEPT FOR HPI NEUROLOGICAL/PSYCH: NEGATIVE EXCEPT FOR HPI HEMATOLOGIC/LYMPHATIC: NEGATIVE EXCEPT FOR HPI ALL SYSTEMS NEGATIVE, EXCEPT NOTED ABOVE. 13 POINT REVIEW OF SYSTEMS ASSESSED AND ALL NEGATIVE EXCEPT FOR ABOVE. Initial Vital Sign VS Vital Signs Date Time Temp Pulse Resp B/P (MAP) Pulse Ox O2 Delivery O2 Flow Rate FiO2 01/19/25 14:01 98.4 81 16 164/99 98 Room Air 0 01/19/25 15:52 21 Physical Exam Dictation VITAL SIGNS REVIEWED GENERAL APPEARANCE: ALERT, ORIENTED X 3, NO ACUTE DISTRESS, WELL DEVELOPED, NOURISHED. HEAD AND FACE: NON-TRAUMATIC. EYES: PERRL, PINK CONJUNCTIVAS, EYELID NO TRAUMA, ANTERIOR CHAMBER WITH ARCUS SENILIS. EARS: PINNAS INTACT AND NO SIGNS OF TRAUMA OR ERYTHEMA EAR CANALS CLEAR AND NO DISCHARGE TM NO ERYTHEMA NOSE: NO DISCHARGE, NO BLEEDING. OROPHARYNX: MOUTH NORMAL, TONGUE PINK, PHARYNX CLEAR,NO ERYTHEMA, TONSILS NO EXUDATES, NO ABSCESSES NOTED, MUCOUS MEMBRANE MOIST NECK: SUPPLE, NON-TENDER, NO THYROMEGALY, NO MASSES, NO JVD, NO BRUITS BREAST:DEFERRED CHEST:NO TENDERNESS, NO CREPITUS, NO PARADOXICAL MOVEMENT, NO RETRACTIONS LUNGS:CLEAR, WELL-VENTILATED, SYMMETRIC, NO RALES, NO WHEEZING, NO RHONCHI, NO STRIDOR, GOOD BREATH SOUNDS BILATERALLY HEART: REGULAR RATE, REGULAR RHYTHM, NO MURMUR, NO GALLOPS VASCULAR: NO PERIPHERAL EDEMA, ABDOMEN: SOFT, POSITIVE BOWEL SOUNDS, NONDISTENDED, NO GUARDING, NONTENDER, NO REBOUND, NO MASSES NO HEPATOMEGALY, NO SPLENOMEGALY, NO SANTIAGO'S SIGN, NO HERNIAS. NAUSEA VOMITING NO FOCAL TENDERNESS RECTAL: DEFERRED GENITAL: DEFERRED NEUROLOGICAL: NORMAL SPEECH, MOTOR FUNCTION INTACT, SENSORY FUNCTION INTACT MUSCULOSKELETAL: NECK NONTENDER, FULL RANGE OF MOTION, BACK NONTENDER, FULL RANGE OF MOTION, EXTREMITIES: NONTENDER, FULL RANGE OF MOTION SKIN: COLOR PINK, DRY, NO TURGOR, NO RASH, NO LACERATIONS, NO ABRASIONS, NO CONTUSIONS. LYMPHATIC: DEFERRED Results (Laboratory/Radiology) Laboratory/Radiology Laboratory Tests Test 01/19/25 14:18 01/19/25 14:20 White Blood Count 7.1 K/uL (4.8-10.8) Red Blood Count 4.70 MIL/uL (4.50-6.20) Hemoglobin 14.0 g/dL (14.0-18.0) Hematocrit 40.3 % (42-54) L Mean Corpuscular Volume 85.7 fL (79-99) Mean Corpuscular Hemoglobin 29.8 pg (27.0-33.0) Mean Corpuscular Hemoglobin Concent 34.7 g/dL (32.0-36.0) Red Cell Distribution Width 12.9 % (11.0-15.5) Platelet Count 266 K/uL (130-400) Mean Platelet Volume 9.4 fL (7.5-10.5) Immature Granulocyte % (Auto) 0.6 % (0-1) Neutrophils (%) (Auto) 71.2 % (40.0-77.0) Lymphocytes (%) (Auto) 19.4 % (21.0-51.0) L Monocytes (%) (Auto) 7.6 % (3.0-13.0) Eosinophils (%) (Auto) 0.8 % (0.0-8.0) Basophils (%) (Auto) 0.4 % (0.0-5.0) Neutrophils # (Auto) 5.1 K/uL (1.8-7.7) Lymphocytes # (Auto) 1.4 K/uL (1.0-4.8) Monocytes # (Auto) 0.5 K/uL (0.1-1.0) Eosinophils # (Auto) 0.06 K/uL (0.00-0.70) Basophils # (Auto) 0.03 K/uL (0.00-0.20) Absolute Immature Granulocyte (auto 0.04 K/uL (0-1) Nucleated Red Blood Cells 0.0 % (0.0-0.19) Sodium Level 139 mmol/L (136-145) Potassium Level 3.8 mmol/L (3.5-5.1) Chloride Level 103 mmol/L (101-111) Carbon Dioxide Level 26 mmol/L (21-32) Blood Urea Nitrogen 12 mg/dL (7-18) Creatinine 0.9 mg/dL (0.5-1.3) Glomerular Filtration Rate Calc 109 mL/min (>90) Random Glucose 109 mg/dL (70-105) H Total Calcium 8.7 mg/dL (8.5-10.1) Urine Color COLORLESS (YELLOW) Urine Appearance CLEAR (CLEAR) Urine pH 6.5 (5.0-8.0) Urine Specific [place] 1.002 (1.001-1.031) Urine Protein NEGATIVE mg/dL (NEGATIVE) Urine Glucose (UA) NEGATIVE mg/dL (NEGATIVE) Urine Ketones NEGATIVE mg/dL (NEGATIVE) Urine Occult Blood NEGATIVE (NEGATIVE) Urine Nitrate NEGATIVE (NEGATIVE) Urine Bilirubin NEGATIVE mg/dL (NEGATIVE) Urine Urobilinogen 0.2 mg/dL (0.2-1.0) Urine Leukocyte Esterase NEGATIVE Anne/uL Labs Reviewed?: Yes ED Course ED Course Orders Procedure Category Date Status Time Cbc With Differential LAB 01/19/25 Complete 14:05 Lactated Ringers PHA 01/19/25 In Process 1000ml (Lactated 14:30 Ondansetron 4mg Inj PHA 01/19/25 Complete (Zofran 4mg Inj) 14:30 Basic Metabolic Panel LAB 01/19/25 Complete 14:05 Urinalysis Profile LAB 01/19/25 Complete 14:23 Acetaminophen 500mg PHA 01/19/25 Complete Tab (Tylenol 500mg T 17:00 Lorazepam 1 Mg PHA 01/19/25 Complete (Ativan) 17:00 Current Medications Medications (Trade) Dose Ordered Sig/Sahil Route PRN Reason Start Time Stop Time Status Last Admin Dose Admin Acetaminophen (TYLenol 500MG TAB) 1,000 mg ONCE ONCE PO 01/19/25 17:00 01/19/25 17:01 DC 01/19/25 16:58 Lactated Ringer's 1,000 ml @ 125 mls/hr ONCE ONCE IV 01/19/25 14:30 01/19/25 22:29 01/19/25 16:01 Lorazepam (AtiVAN) 1 mg ONCE ONCE PO 01/19/25 17:00 01/19/25 17:01 DC 01/19/25 16:57 Ondansetron HCl (zoFRAN 4MG INJ) 4 mg ONCE ONCE IVP 01/19/25 14:30 01/19/25 14:31 DC 01/19/25 16:01 Vital Signs Date Time Temp Pulse Resp B/P (MAP) Pulse Ox O2 Delivery O2 Flow Rate FiO2 01/19/25 15:52 98.2 64 16 170/101 98 Room Air* 0 21 01/19/25 14:01 98.4 81 16 164/99 98 Room Air 0 1640/patient is hemodynamically stable we will be discharged home with Librium 25 mg for alcohol withdrawal states he will be going to [place] in the next several days for long-term treatment. He was strongly advised not to drink alcohol taking medications.1711/ 1711/spoke to patient at length regarding withdrawal symptoms he is aware that I we will be prescribing Librium told him to not drink alcohol or do any drugs while taking Librium. Follow up with his primary care doctor next week. Medical Decision Making MDM MDM: Differential diagnosis: Alcohol withdrawal/drug abuse/electrolyte imbalance/dehydration/nausea and vomiting/ Rationale: Tests considered and ordered secondary to shared decision making include: Labs Previous outside records reviewed: Old ER visits. Risk of complication and/or morbidity or mortality of patient management: None Medications-Per medication reconciliation Need for hospitalization: Patient does not meet criteria for hospitalization. No Need for emergency major/minor surgery: No There are no social concerns with this patient. Polydrug abuser with alcohol Prescription drug management Librium Prescriptions will include symptomatic care Patient's prior external medical records from other ER visits were reviewed by me as indicated. Prior testing and results from previous visits were reviewed. Prior tests were taken into account with medical decision making and resource utilization, independent historian/historians were used to obtain complete medical history. I independently interpreted the test that were performed, results were reviewed by me and considered findings on radiology if ordered. Medical management and examination interpretation discussions were had by me with other qualified healthcare professionals as indicated for the patient's care. DX & DISP Disposition: Discharge Departure Impression: Primary Impression: Alcohol abuse Additional Impressions: Cocaine abuse, Nausea & vomiting Condition: Stable Scripts Chlordiazepoxide HCl (Librium 25 mg Cap) 25 Mg Cap 25 MG PO TID for Alcohol withdrawal, #20 CAP 0 Refills Prov: ZAKI BRADY NP 01/19/25 Referrals: SELF,REFERRAL (PCP) Time of Disposition: 16:43 I have reviewed the case, and I agree with, Diagnosis and Plan ZAKI BRADY NP Jan 19, 2025 14:07
[2025-01-19 14:25] LABS: IMMATURE GRANULOCYTE ABSOLUTE 0.04 K/uL (0-1); NUCLEATED RED BLOOD CELLS 0.0 % (0.0-0.19); PLATELET COUNT (AUTO) 266 K/uL (130-400); RED BLOOD CELL COUNT(AUTO) 4.70 MIL/uL (4.50-6.20); RED CELL DISTRIBUTION WIDTH 12.9 % (11.0-15.5); WHITE BLOOD COUNT (AUTO) 7.1 K/uL (4.8-10.8)
[2025-01-19 14:34] LABS: CREATININE 0.9 mg/dL (0.5-1.3); GLOMERULAR FILTR. RATE CALC 109.0 mL/min (>90); GLUCOSE,RANDOM 109.0 mg/dL (70-105); SODIUM SERUM 139.0 mmol/L (136-145); UREA NITROGEN, BLOOD 12.0 mg/dL (7-18)
[2025-01-19 14:37] LABS: APPEARANCE,URINE CLEAR (CLEAR); GLUCOSE, URINE (UA) NEGATIVE (NEGATIVE); LEUKOCYTE ESTERASE ,URINE NEGATIVE Leu/uL (NEGATIVE); NITRATE,URINE NEGATIVE (NEGATIVE); OCCULT BLOOD,URINE NEGATIVE (NEGATIVE)
[2025-01-19 14:40] LABS: ADD UA MICROSCOPIC NO
[2025-01-19] MEDS: LACTATED RINGERS 1000ML 1,000 ML IV ONE (16:01)
[2025-01-19] MEDS ORDERED: CHLO25CA6 PO (17:16)
[2025-01-19 18:05] VITALS: BP 141/85; PULSE 64; RESP 16; TEMP 98.3; O2SAT 98
== END 2025-01-19 18:14 | disposition home or self-care (01) ==
LOC: EDH 13:59
DX: F10.10 Alcohol abuse, uncomplicated (principal); F14.10 Cocaine abuse, uncomplicated; R11.2 Nausea with vomiting, unspecified; E03.9 Hypothyroidism, unspecified; E11.9 Type 2 diabetes mellitus without complications; E78.00 Pure hypercholesterolemia, unspecified; I10 Essential (primary) hypertension; Z79.899 Other long term (current) drug therapy
CPT/HCPCS: 99283; 96374; 80048; 85025; 81003; 36415; J7120; J2405

== ENCOUNTER 2025-05-29 19:21 | Emergency (ER) | payer OTHER ==
[~2025-05-29] VITALS: Ht 165.1 cm; Wt 89.4 kg
[~2025-05-29 19:21] MED LIST changes: +CHLO25CA6 PO
--- NOTE | 2025-05-29 19:30 | NUR ---
ASSUMED PT CARE AT THIS TIME
[2025-05-29 19:43] LABS: APPEARANCE,URINE CLEAR (CLEAR); GLUCOSE, URINE (UA) NEGATIVE (NEGATIVE); LEUKOCYTE ESTERASE ,URINE NEGATIVE Leu/uL (NEGATIVE); NITRATE,URINE NEGATIVE (NEGATIVE); OCCULT BLOOD,URINE NEGATIVE (NEGATIVE)
[2025-05-29 19:46] LABS: IMMATURE GRANULOCYTE ABSOLUTE 0.05 K/uL (0-1); NUCLEATED RED BLOOD CELLS 0.0 % (0.0-0.19); PLATELET COUNT (AUTO) 287 K/uL (130-400); RED BLOOD CELL COUNT(AUTO) 4.74 MIL/uL (4.50-6.20); RED CELL DISTRIBUTION WIDTH 13.8 % (11.0-15.5); WHITE BLOOD COUNT (AUTO) 6.4 K/uL (4.8-10.8)
[2025-05-29 19:47] LABS: ADD UA MICROSCOPIC NO
[2025-05-29 19:49] LABS: AMPHET/METH SCREEN,URINE NEGATIVE (NEGATIVE); BARBITURATE SCREEN, URINE NEGATIVE (NEGATIVE); CANNABINOID SCREEN,URINE NEGATIVE (NEGATIVE); COCAINE SCREEN,URINE NEGATIVE (NEGATIVE)
[2025-05-29] MEDS: ASPIRIN 325MG TAB PO ONE (19:51)
[2025-05-29 20:01] LABS: CREATININE 0.8 mg/dL (0.5-1.3); GLOMERULAR FILTR. RATE CALC 113.0 mL/min (>90); GLUCOSE,RANDOM 97.0 mg/dL (70-105); SODIUM SERUM 135.0 mmol/L (136-145); UREA NITROGEN, BLOOD 8.0 mg/dL (7-18)
[2025-05-29 20:10] LABS: CREATINE KINASE, TOTAL 367.0 U/L (21-232)
--- NOTE | 2025-05-29 20:26 | EKG ---
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
--- NOTE | 2025-05-29 20:42 | HMCIMG ---
EXAM: CR Chest, 1 View. CLINICAL HISTORY: cp COMPARISON: None provided. FINDINGS: LUNGS: There is no mass, infiltrate, or acute pulmonary abnormality. PLEURAL SPACES: No evidence of pleural effusion or pneumothorax. MEDIASTINUM: The cardiomediastinal silhouette is within normal limits. BONES: No aggressive appearing osseous lesion seen. IMPRESSION: No acute cardiopulmonary pathology is evident. /Donna
[2025-05-29] MEDS: 0.9% NACL 500ML IV.SOLN 500 ML IV ONE (22:04)
--- NOTE | 2025-05-29 22:29 | ERN ---
ED Note History of Present Illness Stated Complaint: C/O NUMBNESS TO LEFT ARM W/CHEST PRESSURE,WEAKNESS Chief Complaint: Numbness Time Seen by MD: 19:33 Time Seen by Midlevel: 19:33 Dictation: The patient is a 44-year-old male with a history of hypertension, hyperlipidemia who presents to the emergency department with complaints of chest pain onset 30 minutes ago associated with shortness of breath. Patient reports his chest pain radiates to his left side of his arm. Reports he has right and left-sided chest pain. Patient complaints of generalized weakness. Complaints of left hand numbness. Patient denies any drug use. Reports he is an occasional drinker with last use yesterday. Reports he does not drink every day. Denies any chest trauma. Allergies: Coded Allergies: No Known Drug Allergies (Verified Allergy, Unknown, 03/05/19) blueberry (Unverified Allergy, Unknown, 03/05/19) Home Meds Active Scripts Chlordiazepoxide HCl (Librium 25 mg Cap) 25 Mg Cap, 25 MG PO TID for Alcohol withdrawal, #20 CAP 0 Refills Prov:ZAKI BRADY 01/19/25 Ipratropium/Albuterol Sulfate (Combivent Respimat Inhal [place]) 20 Mcg-100 Mcg/Actuation Aer.w.adap, 2 PUFF IH TID, #4 GM 0 Refills Prov:KEITH BARBER MD 08/18/24 Thiamine HCl (Vitamin B-1) 100 Mg Tablet, 100 MG PO DAILY for 7 Days, #7 TAB Prov:CASIMIRO ASCENCIO AGAP 04/23/24 Reported Medications Omeprazole (Omeprazole) 20 Mg Capsule.dr, 1 CAP PO DAILY for 30 Days, #30 CAP 0 Refills 04/21/24 Past Medical History Past Medical History: High Cholesterol, Hypertension, Hypothyroid, Other Additional Past Medical Hx: CIRRHOSIS OF LIVER Surgical History: Other Surgical History Other: RT TESTICLE Family History: Negative Social History: Drugs, ETOH, Other RN Note Reviewed/Agreed w/PFSH: Yes Review of System Dictation Constitutional: Negative for fever,chills, and weight loss Eyes: Negative for injury, pain,redness, and discharge ENT: Negative for injury,pain or swelling Cardiovascular: Negative for palpitations, and edema positive for chest pain Respiratory: Negative for shortness of breath, cough, and wheezing, Abdomen/GI: Negative for abdominal pain, nausea, vomiting, diarrhea, and constipation Back: Negative for injury and pain : Negative for injury, bleeding and discharge MS/Extremity: Negative for injury and deformity Skin: Negative for rash, and discoloration Neuro: Negative for headache, weakness, numbness, tingling, and seizure Psych: Negative for suicide ideation, homicidal ideation, and hallucinations Initial Vital Sign VS Vital Signs Date Time Temp Pulse Resp B/P (MAP) Pulse Ox O2 Delivery O2 Flow Rate FiO2 05/29/25 19:24 98.4 86 18 149/95 98 Room Air 05/29/25 19:41 0 21 Physical Exam Dictation Vital Signs reviewed General Appearance: Alert, oriented x 3, no acute distress, well developed, nourished. Head and Face: non-traumatic. Eyes: PERRL, pink conjunctivas, eyelid no trauma, anterior chamber with arcus senilis. Ears: Pinnas intact and no signs of trauma or erythema ear canals clear and no discharge TM no erythema Nose: No discharge, no bleeding. Oropharynx: Mouth normal, tongue pink. pharynx clear,no erythema, tonsils no exudates, no abscesses noted, mucous membrane moist Neck: Supple, non-tender, no thyromegaly, no masses, no JVD, no bruits Breast:Deferred Chest:No tenderness, no crepitus, no paradoxical movement, no retractions Lungs:Clear, well-ventilated, symmetric, no rales, no wheezing, no rhonchi, no stridor, good breath sounds bilaterally Heart: Regular rate, regular rhythm, no murmur, no gallops Vascular: no peripheral edema, Abdomen: Soft, positive bowel sounds, nondistended, no guarding, nontender, no rebound, no masses no hepatomegaly, no splenomegaly, no Bravo's sign, no hernias. Rectal: Deferred Genital: Deferred Neurological: Normal speech, motor function intact, sensory function intact , upper extremities equal in strength, lower extremities equal in strength, no slurred speech, no facial droop Musculoskeletal: Neck nontender, full range of motion, back nontender, full range of motion, Extremities: nontender, full range of motion Skin: Color pink, dry, no turgor, no rash, no lacerations, no abrasions, no contusions. Lymphatic: Deferred Results (Laboratory/Radiology) Laboratory/Radiology Laboratory Tests Test 05/29/25 19:30 05/29/25 19:38 05/29/25 20:41 Urine Color COLORLESS (YELLOW) Urine Appearance CLEAR (CLEAR) Urine pH 6.5 (5.0-8.0) Urine Specific [place] 1.001 (1.001-1.031) Urine Protein NEGATIVE mg/dL (NEGATIVE) Urine Glucose (UA) NEGATIVE mg/dL (NEGATIVE) Urine Ketones NEGATIVE mg/dL (NEGATIVE) Urine Occult Blood NEGATIVE (NEGATIVE) Urine Nitrate NEGATIVE (NEGATIVE) Urine Bilirubin NEGATIVE mg/dL (NEGATIVE) Urine Urobilinogen 0.2 mg/dL (0.2-1.0) Urine Leukocyte Esterase NEGATIVE Anne/uL Urine Opiates Screen NEGATIVE (NEGATIVE) Urine Barbiturates Screen NEGATIVE (NEGATIVE) Urine Phencyclidine Screen NEGATIVE (NEGATIVE) Urine Amphetamines Screen NEGATIVE (NEGATIVE) Urine Benzodiazepines Screen NEGATIVE (NEGATIVE) Urine Cocaine Screen NEGATIVE (NEGATIVE) Urine Marijuana (THC) Screen NEGATIVE (NEGATIVE) White Blood Count 6.4 K/uL (4.8-10.8) Red Blood Count 4.74 MIL/uL (4.50-6.20) Hemoglobin 14.1 g/dL (14.0-18.0) Hematocrit 40.4 % (42-54) L Mean Corpuscular Volume 85.2 fL (79-99) Mean Corpuscular Hemoglobin 29.7 pg (27.0-33.0) Mean Corpuscular Hemoglobin Concent 34.9 g/dL (32.0-36.0) Red Cell Distribution Width 13.8 % (11.0-15.5) Platelet Count 287 K/uL (130-400) Mean Platelet Volume 9.1 fL (7.5-10.5) Immature Granulocyte % (Auto) 0.8 % (0-1) Neutrophils (%) (Auto) 67.9 % (40.0-77.0) Lymphocytes (%) (Auto) 21.9 % (21.0-51.0) Monocytes (%) (Auto) 7.4 % (3.0-13.0) Eosinophils (%) (Auto) 1.4 % (0.0-8.0) Basophils (%) (Auto) 0.6 % (0.0-5.0) Neutrophils # (Auto) 4.3 K/uL (1.8-7.7) Lymphocytes # (Auto) 1.4 K/uL (1.0-4.8) Monocytes # (Auto) 0.5 K/uL (0.1-1.0) Eosinophils # (Auto) 0.09 K/uL (0.00-0.70) Basophils # (Auto) 0.04 K/uL (0.00-0.20) Absolute Immature Granulocyte (auto 0.05 K/uL (0-1) Nucleated Red Blood Cells 0.0 % (0.0-0.19) Sodium Level 135 mmol/L (136-145) L Potassium Level 3.6 mmol/L (3.5-5.1) Chloride Level 99 mmol/L (101-111) L Carbon Dioxide Level 25 mmol/L (21-32) Blood Urea Nitrogen 8 mg/dL (7-18) Creatinine 0.8 mg/dL (0.5-1.3) Glomerular Filtration Rate Calc 113 mL/min (>90) Random Glucose 97 mg/dL (70-105) Total Calcium 8.2 mg/dL (8.5-10.1) L Total Creatine Kinase 367 U/L (21-232) H Troponin I High Sensitivity < 4 ng/L (4-75) L < 4 ng/L (4-75) L Lipase 24 U/L (16-77) REASON: cp ORDERING PHYSICIAN: 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 CLINICAL HISTORY: cp COMPARISON: None provided. FINDINGS: LUNGS: There is no mass, infiltrate, or acute pulmonary abnormality. PLEURAL SPACES: No evidence of pleural effusion or pneumothorax. MEDIASTINUM: The cardiomediastinal silhouette is within normal limits. BONES: No aggressive appearing osseous lesion seen. IMPRESSION: No acute cardiopulmonary pathology is evident. /[place] Labs Reviewed?: Yes EKG: (+) rhythm (Sinus rhythm) EKG Comment: Date:05/29/2025 Time:185 Ventricular rate:85 ND interval:132 QRS duration:86 QT/QTc:380/452 EKG interpretation: Sinus rhythm Reviewed by ED Attending no STEMI ED Course ED Course Orders Procedure Category Date Status Time 12 Lead Ekg Tracing- EKG 05/29/25 Complete Technical 19:29 Cbc With Differential LAB 05/29/25 Complete 19:33 Chest 1vw RAD 05/29/25 Resulted 19:33 Creatine Kinase, Total LAB 05/29/25 Complete 19:33 Troponin I High LAB 05/29/25 Complete Sensitivity 19:33 Aspirin 325mg Tab PHA 05/29/25 Complete (Aspirin 325mg Tab) 20:00 Urinalysis Profile LAB 05/29/25 Complete 19:33 Basic Metabolic Panel LAB 05/29/25 Complete 19:33 Drug Screen Urine LAB 05/29/25 Complete 19:33 Troponin I High LAB 05/29/25 Complete Sensitivity 20:22 Ketorolac PHA 05/29/25 Complete Tromethamine 15mg/Ml 21:30 Pantoprazole 40mg Inj PHA 05/29/25 Complete (Protonix 40mg Inj 21:30 Lipase LAB 05/29/25 Complete 21:22 0.9% Nacl 500ml PHA 05/29/25 Complete Iv.Soln (Ns 500ml 22:00 Current Medications Medications (Trade) Dose Ordered Sig/Sahil Route PRN Reason Start Time Stop Time Status Last Admin Dose Admin Aspirin (Aspirin 325mg Tab) 325 mg ONCE ONCE PO 05/29/25 20:00 05/29/25 20:01 DC 05/29/25 19:51 Ketorolac Tromethamine (toRADol) 15 mg ONCE ONCE IV 05/29/25 21:30 05/29/25 21:31 DC 05/29/25 21:31 Pantoprazole Sodium (PROTonix 40MG INJ) 40 mg ONCE ONCE IVP 05/29/25 21:30 05/29/25 21:31 DC 05/29/25 21:32 Sodium Chloride 500 ml @ 0 mls/hr ONCE ONCE IV 05/29/25 22:00 05/29/25 22:01 DC 05/29/25 22:04 Vital Signs Date Time Temp Pulse Resp B/P (MAP) Pulse Ox O2 Delivery O2 Flow Rate FiO2 05/29/25 19:41 98.2 82 18 141/94 99 Room Air* 0 21 05/29/25 19:24 98.4 86 18 149/95 98 Room Air HEART Score Response (Comments) Value History: Moderate suspicion (+1) 1 EKG: Normal 0 Age: < 45yrs (0) 0 Risk Factors: 1-2 risk factors (+1) 1 Initial Troponin: Normal limit (0) 0 Total 2 Medical Decision Making MDM The patient is a 44-year-old male with a history of hypertension, hyperlipidemia who presents to the emergency department with complaints of chest pain onset 30 minutes ago associated with shortness of breath. Patient reports his chest pain radiates to his left side of his arm. Reports he has right and left-sided chest pain. Patient complaints of generalized weakness. Complaints of left hand numbness. Patient denies any drug use. Reports he is an occasional drinker with last use yesterday. Reports he does not drink every day. Denies any chest trauma. CBC showed no leukocytosis, no anemia, chemistry showed mild hyponatremia, hypochloremia, negative troponin x2, chest x-ray was unremarkable. EKG was normal sinus rhythm. Patient with tenderness to palpation. Appears to be musculoskeletal. Patient with low risk for cardiac etiology. On physical exam patient is in no acute distress, nontoxic appearance, patient neurologically intact. NIH of 0 patient will be discharged to follow up with PCP. Differential diagnosis: ACS, costochondritis, pneumonia, dehydration Need for hospitalization: Patient does not meet criteria for hospitalization. There are no social concerns with this patient. DX & DISP Disposition: Discharge Departure Impression: Primary Impression: Chest wall pain Condition: Stable Additional Instructions: Your labs were unremarkable. Your chest x-ray was normal. Please follow up with the your primary doctor in 1-2 days. If anything worsens please return to ER. FOLLOW-UP WITH PRIMARY CARE PROVIDER IN 1 TO 2 DAYS. TAKE MEDICATIONS DIRECTED HERE IN THE EMERGENCY ROOM. OKAY TO CONTINUE HOME MEDICATIONS UNLESS OTHERWISE DISCUSSED DURING YOUR VISIT IN THE EMERGENCY ROOM TODAY. RETURN TO YOUR NEAREST EMERGENCY ROOM IF SYMPTOMS WORSEN OR IF THERE IS NO IMPROVEMENT. CALL 911 IF YOU NEED IMMEDIATE ASSISTANCE. TAKE TYLENOL [id number] NEEDED AND IF NO CONTRAINDICATIONS ARE PRESENT. INCREASE ORAL HYDRATION. A WOU ND CULTURE OR URINE CULTURE WAS ORDERED HERE IN THE EMERGENCY ROOM DEPARTMENT PLEASE FOLLOW-UP WITH PRIMARY CARE PROVIDER AND ADVISE THEM TO GET REPEAT PORTS FROM OUR FACILITY. IF YOU HAD ANY EDUARDO WRAP/SPLINTS THAT WERE APPLIED HERE, PLEASE DO NOT REMOVE THEM UNTIL YOU SEE YOUR PRIMARY CARE OR SPECIALTY. Referrals: SELF,REFERRAL (PCP) Time of Disposition: 22:29 I have reviewed the case, and I agree with, Diagnosis and Plan LAKISHA RIVERA [facility] May 29, 2025 22:29
[2025-05-29 22:57] VITALS: BP 128/85; PULSE 73; RESP 14; TEMP 98.4; O2SAT 99
== END 2025-05-29 23:09 | disposition home or self-care (01) ==
LOC: EDH 19:21
DX: R07.89 Other chest pain (principal); R20.0 Anesthesia of skin; R06.02 Shortness of breath; R53.1 Weakness; I10 Essential (primary) hypertension; E78.00 Pure hypercholesterolemia, unspecified; E03.8 Other specified hypothyroidism; Z91.018 Allergy to other foods; Z79.899 Other long term (current) drug therapy
CPT/HCPCS: 99285; 96374; 71045; 96361; 96375; 82550; 84484 ×2; 80048; 80305; 83690; 85025; 81003; 36415; 93005; J1885; J7040; J2470